=== PATIENT | male | born 1970 | race Caucasian/White ===

== ENCOUNTER 2021-05-18 13:19 | Outpatient (CLI) | payer MEDICAID, SELFPAY | END 2021-05-18 13:20 | disposition home or self-care (01) | LOC: WOUND 13:21 | PROVIDERS: Family Provider Nurse Practitioner Family; PCP Nurse Practitioner Family; Visit Provider Emergency Medicine | DX: I96 Gangrene, not elsewhere classified (principal); E11.622 Type 2 diabetes mellitus with other skin ulcer; L98.492 Non-pressure chronic ulcer of skin of other sites with fat layer exposed; F17.210 Nicotine dependence, cigarettes, uncomplicated | CPT/HCPCS: 11043; 11046; 99214 ==

== ENCOUNTER 2021-06-01 13:20 | Outpatient (CLI) | payer MEDICAID, SELFPAY | END 2021-06-01 13:21 | disposition home or self-care (01) | LOC: WOUND 13:21 | PROVIDERS: Family Provider Nurse Practitioner Family; PCP Nurse Practitioner Family; Visit Provider Nurse Practitioner Family | DX: I96 Gangrene, not elsewhere classified (principal); E11.622 Type 2 diabetes mellitus with other skin ulcer; L98.492 Non-pressure chronic ulcer of skin of other sites with fat layer exposed; F17.210 Nicotine dependence, cigarettes, uncomplicated; I10 Essential (primary) hypertension | CPT/HCPCS: 11042; 11045; A6237 ==

== ENCOUNTER 2021-06-03 15:25 | Outpatient (CLI) | payer MEDICAID, SELFPAY | END 2021-06-03 15:26 | disposition home or self-care (01) | LOC: WOUND 15:27 | PROVIDERS: Family Provider Nurse Practitioner Family; PCP Nurse Practitioner Family; Visit Provider Nurse Practitioner Family | DX: E11.622 Type 2 diabetes mellitus with other skin ulcer (principal); L98.499 Non-pressure chronic ulcer of skin of other sites with unspecified severity; M72.6 Necrotizing fasciitis | CPT/HCPCS: 97606; A6237 ==

== ENCOUNTER 2021-06-09 13:29 | Outpatient (CLI) | payer MEDICAID, SELFPAY | END 2021-06-09 13:30 | disposition home or self-care (01) | LOC: WOUND 13:30 | PROVIDERS: Family Provider Nurse Practitioner Family; PCP Nurse Practitioner Family; Visit Provider Nurse Practitioner Family | DX: E11.622 Type 2 diabetes mellitus with other skin ulcer (principal); L98.493 Non-pressure chronic ulcer of skin of other sites with necrosis of muscle; F17.210 Nicotine dependence, cigarettes, uncomplicated | CPT/HCPCS: 11042; 11045; A6237; A6250 ==

== ENCOUNTER 2021-06-14 08:03 | Outpatient (CLI) | payer MEDICAID, SELFPAY | END 2021-06-14 08:04 | disposition home or self-care (01) | LOC: WOUND 08:06 | PROVIDERS: Family Provider Nurse Practitioner Family; PCP Nurse Practitioner Family; Visit Provider Thoracic Surgery (Cardiothoracic Vascular Surgery) | DX: I96 Gangrene, not elsewhere classified (principal); E11.622 Type 2 diabetes mellitus with other skin ulcer; L98.492 Non-pressure chronic ulcer of skin of other sites with fat layer exposed; F17.210 Nicotine dependence, cigarettes, uncomplicated | CPT/HCPCS: 11042; 11045; 97597; A6250 ==

== ENCOUNTER 2021-06-21 13:49 | Outpatient (CLI) | payer MEDICAID, SELFPAY | END 2021-06-21 13:50 | disposition home or self-care (01) | LOC: WOUND 13:50 | PROVIDERS: Family Provider Nurse Practitioner Family; PCP Nurse Practitioner Family; Visit Provider Thoracic Surgery (Cardiothoracic Vascular Surgery) | DX: I96 Gangrene, not elsewhere classified (principal); E11.622 Type 2 diabetes mellitus with other skin ulcer; L98.491 Non-pressure chronic ulcer of skin of other sites limited to breakdown of skin; F17.210 Nicotine dependence, cigarettes, uncomplicated; I10 Essential (primary) hypertension | CPT/HCPCS: 97597; 97598; 97606; A6237; A6250 ==

== ENCOUNTER 2021-06-28 15:00 | Outpatient (CLI) | payer MEDICAID, SELFPAY | END 2021-06-28 15:01 | disposition home or self-care (01) | LOC: WOUND 15:02 | PROVIDERS: Family Provider Nurse Practitioner Family; PCP Nurse Practitioner Family; Visit Provider Nurse Practitioner Family | DX: I96 Gangrene, not elsewhere classified (principal); E11.622 Type 2 diabetes mellitus with other skin ulcer; L98.492 Non-pressure chronic ulcer of skin of other sites with fat layer exposed; F17.210 Nicotine dependence, cigarettes, uncomplicated | CPT/HCPCS: 11042; 11045; A6237; A6250 ==

== ENCOUNTER 2021-07-05 13:54 | Outpatient (CLI) | payer MEDICAID, SELFPAY | END 2021-07-05 13:55 | disposition home or self-care (01) | LOC: WOUND 13:55 | PROVIDERS: Family Provider Nurse Practitioner Family; PCP Nurse Practitioner Family; Visit Provider Thoracic Surgery (Cardiothoracic Vascular Surgery) | DX: I96 Gangrene, not elsewhere classified (principal); E11.622 Type 2 diabetes mellitus with other skin ulcer; L98.491 Non-pressure chronic ulcer of skin of other sites limited to breakdown of skin; F17.210 Nicotine dependence, cigarettes, uncomplicated; I10 Essential (primary) hypertension | CPT/HCPCS: 97597; 97598; 97605; A6237; A6250 ==

== ENCOUNTER 2021-07-12 14:48 | Outpatient (CLI) | payer MEDICAID, SELFPAY | END 2021-07-12 14:49 | disposition home or self-care (01) | LOC: WOUND 14:50 | PROVIDERS: Family Provider Nurse Practitioner Family; PCP Nurse Practitioner Family; Visit Provider Nurse Practitioner Family | DX: I96 Gangrene, not elsewhere classified (principal); E11.622 Type 2 diabetes mellitus with other skin ulcer; L98.492 Non-pressure chronic ulcer of skin of other sites with fat layer exposed; F17.210 Nicotine dependence, cigarettes, uncomplicated; I10 Essential (primary) hypertension | CPT/HCPCS: 11043; 11046; 97606; A6237; A6250 ==

== ENCOUNTER 2021-07-19 13:43 | Outpatient (CLI) | payer MEDICAID, SELFPAY | END 2021-07-19 13:44 | disposition home or self-care (01) | LOC: WOUND 13:43 | PROVIDERS: Family Provider Nurse Practitioner Family; PCP Nurse Practitioner Family; Visit Provider Thoracic Surgery (Cardiothoracic Vascular Surgery) | DX: I96 Gangrene, not elsewhere classified (principal); E11.622 Type 2 diabetes mellitus with other skin ulcer; L98.492 Non-pressure chronic ulcer of skin of other sites with fat layer exposed; F17.210 Nicotine dependence, cigarettes, uncomplicated | CPT/HCPCS: 11042; 11045; 97606; A6237; A6250 ==

== ENCOUNTER 2021-08-02 15:17 | Outpatient (CLI) | payer MEDICAID, SELFPAY | END 2021-08-02 15:18 | disposition home or self-care (01) | LOC: WOUND 15:18 | PROVIDERS: Family Provider Nurse Practitioner Family; PCP Nurse Practitioner Family; Visit Provider Thoracic Surgery (Cardiothoracic Vascular Surgery) | DX: I96 Gangrene, not elsewhere classified (principal); E11.622 Type 2 diabetes mellitus with other skin ulcer; L98.491 Non-pressure chronic ulcer of skin of other sites limited to breakdown of skin; F17.210 Nicotine dependence, cigarettes, uncomplicated | CPT/HCPCS: 97597; 97605; A6237; A6250 ==

== ENCOUNTER 2021-08-09 14:49 | Outpatient (CLI) | payer MEDICAID, SELFPAY | END 2021-08-09 14:50 | disposition home or self-care (01) | LOC: WOUND 14:50 | PROVIDERS: Family Provider Nurse Practitioner Family; PCP Nurse Practitioner Family; Visit Provider Thoracic Surgery (Cardiothoracic Vascular Surgery) | DX: I96 Gangrene, not elsewhere classified (principal); E11.622 Type 2 diabetes mellitus with other skin ulcer; L97.812 Non-pressure chronic ulcer of other part of right lower leg with fat layer exposed; F17.210 Nicotine dependence, cigarettes, uncomplicated | CPT/HCPCS: 97597; A6237; A6250 ==

== ENCOUNTER 2021-08-16 14:54 | Outpatient (CLI) | payer MEDICAID, SELFPAY | END 2021-08-16 14:55 | disposition home or self-care (01) | LOC: WOUND 14:56 | PROVIDERS: Family Provider Nurse Practitioner Family; PCP Nurse Practitioner Family; Visit Provider Thoracic Surgery (Cardiothoracic Vascular Surgery) | DX: E11.622 Type 2 diabetes mellitus with other skin ulcer (principal); L98.492 Non-pressure chronic ulcer of skin of other sites with fat layer exposed; I96 Gangrene, not elsewhere classified | CPT/HCPCS: 97597 ==

== ENCOUNTER 2021-08-30 13:34 | Outpatient (CLI) | payer MEDICAID, SELFPAY | END 2021-08-30 13:35 | disposition home or self-care (01) | LOC: WOUND 13:37 | PROVIDERS: Family Provider Nurse Practitioner Family; PCP Nurse Practitioner Family; Visit Provider Thoracic Surgery (Cardiothoracic Vascular Surgery) | DX: E11.622 Type 2 diabetes mellitus with other skin ulcer (principal); L98.492 Non-pressure chronic ulcer of skin of other sites with fat layer exposed; F17.210 Nicotine dependence, cigarettes, uncomplicated | CPT/HCPCS: 97597 ==

== ENCOUNTER → 2021-09-13 12:59 | Outpatient (BNVA) | payer MEDICAID, SELFPAY | PROVIDERS: Family Provider Nurse Practitioner Family; PCP Nurse Practitioner Family; Visit Provider Thoracic Surgery (Cardiothoracic Vascular Surgery) | DX: E11.622 Type 2 diabetes mellitus with other skin ulcer (principal); I96 Gangrene, not elsewhere classified; L98.492 Non-pressure chronic ulcer of skin of other sites with fat layer exposed; F17.210 Nicotine dependence, cigarettes, uncomplicated | CPT/HCPCS: 97597 ==

== ENCOUNTER → 2021-09-27 13:02 | Outpatient (BNVA) | payer MEDICAID, SELFPAY | PROVIDERS: Family Provider Nurse Practitioner Family; PCP Nurse Practitioner Family; Visit Provider Thoracic Surgery (Cardiothoracic Vascular Surgery) | DX: E11.622 Type 2 diabetes mellitus with other skin ulcer (principal); L98.492 Non-pressure chronic ulcer of skin of other sites with fat layer exposed; F17.210 Nicotine dependence, cigarettes, uncomplicated | CPT/HCPCS: 99212 ==

== ENCOUNTER 2021-10-27 10:46 | Outpatient (CLI) | payer MEDICAID, SELFPAY ==
--- NOTE | 2021-10-27 10:58 | USCV_ITS ---
Eligio Knox Age: 51 Gender: M : 1970 Exam Date: 10/27/2021 11:12 Ordering Phys: Stephany Montoya Technologist: KEYONNA Exam Location: [facility] Indication: Pulmonary vascular congestion BP: 140 / 67 HR: 54 Rhythm: Sinus Technical Quality: Very technically difficult study MEASUREMENTS (Male / Female) Normal Values 2D ECHO LV Diastolic Diameter PLAX 5.5 cm 4.2 - 5.9 / 3.9 - 5.3 cm LV Systolic Diameter PLAX 3.9 cm IVS Diastolic Thickness 1.2 cm 0.6 - 1.0 / 0.6 - 0.9 cm IVS Systolic Thickness 2.5 cm LVPW Diastolic Thickness 1.9 cm 0.6 - 1.0 / 0.6 - 0.9 cm LVPW Systolic Thickness 2.1 cm LVOT Diameter 2.0 cm LV Ejection Fraction 2D Teich 53.4 % LA Diameter 3.5 cm Aorta at Sinotubular Diameter 1.8 cm M-MODE Aortic Annulus Diameter 3.7 cm LA Ao Ratio MM 0.9 MV E Point Septal Separation 0.2 cm DOPPLER AV Peak Velocity 137.0 cm/s LVOT Peak Velocity 90.0 cm/s AV Area Cont Eq vti 2.5 cm squared AV Area Cont Eq pk 2.1 cm squared MV Area PHT 3.5 cm squared Mitral E to A Ratio 1.0 MV E' Velocity 42.5 cm/s Mitral E to MV E' Ratio 13.4 Mitral E to LV E' Lateral Ratio 10.8 Mitral E to LV E' Septal Ratio 17.7 TR Peak Velocity 205.3 cm/s TR Peak Gradient 16.9 mmHg TV Peak E Velocity 36.0 cm/s PV Peak Velocity 135.0 cm/s RV Acceleration Time 0.1 s RV Ejection Time 0.3 s RV AcT/ET 0.3 FINDINGS Left Ventricle Normal left ventricular size. LV systolic function is normal with EF of 50-55%. No regional wall motion abnormalities. Grade 2 diastolic dysfunction Right Ventricle Grossly normal Right Atrium Not well visualized Left Atrium Not well visualized Mitral Valve Grossly normal without significant stenosis or prolapse. There is no mitral regurgitation. Aortic Valve Not visualized. No significant stenosis. There is no aortic regurgitation. Tricuspid Valve Not visualized. Trace tricuspid regurgitation. Pulmonary artery systolic pressure is normal. Pulmonic Valve Not visualized Pericardium Normal pericardium without effusion. Aorta Normal ascending aorta dimension. IVC CONCLUSIONS Technically limited echocardiogram because of poor ultranosic windows LV systolic function is normal with EF of 50-55% Grade 2 diastolic dysfunction Valves are not well visualized. Trace tricuspid regurgitation No comparison studies are available Narendra Olson MD (Electronically Signed) Final Date: 06 Nov 2021 22:24 S
== END 2021-10-27 10:47 | disposition home or self-care (01) ==
PROVIDERS: PCP Nurse Practitioner Family; Visit Provider Nurse Practitioner Family
DX: R09.89 Other specified symptoms and signs involving the circulatory and respiratory systems (principal)
CPT/HCPCS: 93306

== ENCOUNTER 2022-01-13 15:50 | Emergency (ER) | payer MEDICAID, SELFPAY ==
[2022-01-13] VITALS (8 sets, daily range): BP systolic 135–234; BP diastolic 81–135; PULSE 56–60; RESP 19–20; TEMP 36.8; O2SAT 90–96; BMI 40.3
--- NOTE | 2022-01-13 15:51 | ECG_ITS ---
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 Measurements Intervals [place] Rate: 54 P: -64 WI: 135 QRS: 21 QRSD: 93 T: 50 QT: 456 QTc: 435 Interpretive Statements JUNCTIONAL BRADYCARDIA ABNORMAL RHYTHM ECG Compared to ECG 12/16/2014 13:13:51 Sinus rhythm no longer present Ventricular premature complex(es) no longer present Electronically Signed On 01-14-2022 12:22:58 CDT by Neida Godfrey M.D. [id number]
--- NOTE | 2022-01-13 16:23 | ED_ITS ---
HPI - SOB/Dyspnea General: Chief Complaint: Shortness of Breath/Dyspnea Stated Complaint: LOW HEARTRATE Time Seen by Provider: 01/13/22 15:51 Source: patient Mode of arrival: ambulatory History of Present Illness: HPI Narrative: 51 yo male presents with conmplaints of fluid in his abd. His bursa when he had surgery in his right groin they cut open a fluid pocket and now it is drained in his abdomen into his back and is making it difficult for him to breathe. He denies any fever sweats chills he noticed that when he bends over he gets extremely short of breath. Patient is morbidly obese is a history of diabetes mellitus. He is not currently take anything for his diabetes mellitus he is determined that it is in remission. He does have fluid draining which he perceives to be draining from his abdomen its coming from the right groin area. There is and chest. He does complain of shortness of breath with activity. But no chest pain. MD elicited complaint: shortness of breath and cough Pertinent past history: diabetes Onset (ago): week(s) Severity: moderate Exacerbating factors: lying flat, exertion, movement and coughing Relieving factors: rest Known history of: diabetes Associated symptoms: Reports chest congestion, chest pain, orthopnea and rash; Deny abdominal pain, cough, diaphoresis, dizziness, extremity pain, fever(s), hemoptysis, lightheadedness, myalgias, nausea, palpitations, paresthesias, polydipsia, polyuria, sense of impending doom, syncope or vomiting Treatment prior to arrival: none Review of Systems Const: Denies: fever(s), chills, fatigue, malaise or diaphoresis Card: Reports: chest pain and orthopnea; Denies: palpitations, lightheadedness or syncope Resp: Reports: chest congestion; Denies: dyspnea, productive cough, non-productive cough or hemoptysis GI: Denies: abdominal pain, nausea or vomiting Musc: Denies: extremity pain Neuro: Denies: dizziness Endo: Denies: polyuria or polydipsia PFS ED PFSH: Medical History Diabetes Diastolic dysfunction Edema Hyperlipidemia Hypertension Pulmonary vascular congestion Family History Father Stroke Brother CAD (coronary artery disease) Dementia Stroke Family/Other Cancer Diabetes Denies family history of Clotting disorder Chronic kidney disease (CKD) Suicide Anesthesia complication Bleeding disorder Lung disease Social History Smoking and tobacco status: current every day smoker Physical Exam Const: GENERAL APPEARANCE: cooperative and comfortable ORIENTATION/CONSCIOUSNESS: Yes awake, Yes oriented to person, Yes oriented to place and Yes oriented to time HENMT: COMMON NORMALS: normocephalic, atraumatic, hearing grossly normal b ilaterally, external ears normal, EAC's normal, TM's normal bilaterally and Normal nasal mucous membranes and turbinates present HEAD & SCALP: normocephalic and atraumatic NOSE: Normal nasal mucous membranes and turbinates present EXTERNAL EAR: Yes external ears normal EXTERNAL AUDITORY CANAL: EAC's normal TYMPANIC MEMBRANE: TM's normal bilaterally Eye: COMMON NORMALS: Equal, round and reactive pupils present, EOMs intact bilaterally, conjunctivae normal and no scleral icterus CONJUNCTIVA: Yes conjunctivae normal PUPIL: Yes Equal, round and reactive pupils present Neck/C-Spine: COMMON NORMALS: full ROM, no lymphadenopathy and supple Lymph: LYMPHATIC: no lymphadenopathy noted and no lymphedema noted Resp: COMMON NORMALS: normal respiratory effort, No retractions, No use of accessory muscles and clear to auscultation bilaterally AUSCULTATION: clear to auscultation bilaterally Cardio: COMMON NORMALS: regular rate, regular rhythm and No murmurs present (Cardio) RATE: regular rate RHYTHM: regular rhythm GI: COMMON NORMALS: Soft to palpation and No hepatosplenomegaly present AUSCULTATION: Yes normoactive bowel sounds PALPATION: Yes Soft to palpation, No Tenderness to palpation present (GI), No Guarding due to palpation present (GI) and Yes No hepatosplenomegaly present Extremity: COMMON NORMALS: normal to inspection, capillary refill normal and no calf tenderness GENERAL: Yes edema (2+ edema lower extremities extending to the groin) OTHER: Examination lower extremities +2 edema nonpitting in the lower extremities to the level of the waist. Patient has breakdown of the skin under the pannus particularly on the right side with some serous drainage no identifiable abscess on palpation. Neuro: SENSORIUM/ORIENTATION: Yes oriented to person, Yes oriented to place and Yes oriented to time Skin: NARRATIVE SKIN EXAM: Chronic skin changes in the groin and inferior portion of the pannus. There is some small areas of superficial breakdown with serous drainage no purulent drainage the area is chronically indurated and boggy there is no palpable fluctuations I cannot express any purulent fluid. Course Vital Signs: Vital signs: Vital Signs Temperature 98.2 F 01/13/22 15:52 Pulse Rate 56 L 01/13/22 18:30 Respiratory Rate 19 H 01/13/22 15:52 Blood Pressure 145/90 01/13/22 18:30 Pulse Oximetry 96 01/13/22 19:09 Oxygen Delivery Me thod 01/13/22 18:30 MDM - SOB/Dyspnea Medical Decision Making Patient has a lot of chronic skin changes in the groin and inferior aspect of the pannus. He also has a lot of fluid overload. I think his difficulty breathing comes just because of his size when he bends over he basically reduces lung capacity is very short of breath. He would benefit from some diuresis given Lasix here and discharged home with Lasix. He is not however at this point require inpatient care. Resting oxygen is 96% and he does not decrease with ambulation. I Kateryna cover him with some antibiotics and will have him follow-up with his primary care doctor within the week. We will schedule for an outpatient echo and follow-up with cardiology as well. Also suspect patient has sleep apnea. He should be evaluated for that at some point 2. Medical Records I reviewed the patient's medical records. Lab Data I reviewed the patient's lab results. : 01/13/22 16:30 01/13/22 16:30 Labs/Radiology: Radiology Impressions Abdomen Ultrasound 01/13/22 16:45 IMPRESSION: No ascites is identified. Chest X-Ray 01/13/22 16:46 IMPRESSION: No acute infiltrate. Laboratory Results WBC 11.1 10^3/uL (4.0-10.0) H 01/13/22 16:30 RBC 5.55 10^6/uL (4.1-5.3) H 01/13/22 16:30 Hgb 17.7 g/dL (11.7-16.6) H 01/13/22 16:30 Hct 53.2 % (42.0-52.0) H 01/13/22 16:30 MCV 95.9 fl (80-94) H 01/13/22 16:30 MCH 31.9 pg (28.0-34.0) 01/13/22 16:30 MCHC 33.3 g/dL (30.0-36.0) 01/13/22 16:30 RDW 13.1 % (12.1-15.1) 01/13/22 16:30 Plt Count 234 10^3/cmm (130-400) 01/13/22 16:30 MPV 10.5 fL (7.4-10.4) H 01/13/22 16:30 Neut % (Auto) 75.4 % 01/13/22 16:30 Lymph % (Auto) 14.4 % 01/13/22 16:30 Giles % (Auto) 7.1 % 01/13/22 16:30 Eos % (Auto) 1.7 % 01/13/22 16:30 Baso % (Auto) 1.0 % 01/13/22 16:30 Neut # (Auto) 8.35 10^3/uL (1.8-7.7) H 01/13/22 16:30 Lymph # (Auto) 1.6 10^3/uL (0.8-4.8) 01/13/22 16:30 Giles # (Auto) 0.8 10^3/uL (0.2-0.9) 01/13/22 16:30 Eos # (Auto) 0.2 10^3/uL (0.0-0.8) 01/13/22 16:30 Baso # (Auto) 0.1 10^3/uL (0.0-0.1) 01/13/22 16:30 Nucleated RBC % (auto) 0 % 01/13/22 16:30 Nucleated RBCs # 0.0 /100WBC 01/13/22 16:30 Sodium 133 mmol/L (136-145) L 01/13/22 16:30 Potassium 4.5 mmol/L (3.5-5.1) 01/13/22 16:30 Chloride 95 mmol/L (98-107) L 01/13/22 16:30 Carbon Dioxide 29 mmol/L (22-29) 01/13/22 16:30 Anion Gap 13.5 (5-19) 01/13/22 16:30 BUN 12 mg/dL (6-20) 01/13/22 16:30 Creatinine 0.8 mg/dL (0.7-1.2) 01/13/22 16:30 GFR Calculation 101.1 mL/min (90-130) 01/13/22 16:30 Glucose 92 mg/dL (65-115) 01/13/22 16:30 POC Glucose 95 mg/dL (70-110) 01/13/22 17:20 Calculated Osmolality 275 mOsm/kg (285-295) L 01/13/22 16:30 Calcium 9.2 mg/dL (8.5-10.5) 01/13/22 16:30 Magnesium 1.7 mg/dL (1.7-2.3) 01/13/22 16:30 Total Bilirubin 0.5 mg/dL (0.15-1.2) 01/13/22 16:30 AST 23 U/L (0-40) 01/13/22 16:30 ALT 19 U/L (0-41) 01/13/22 16:30 Alkaline Phosphatase 117 IU/L (40-130) 01/13/22 16:30 Troponin T Baseline 14 ng/L (0-15) 01/13/22 17:05 NT-Pro-B Natriuret Pep 245 pg/mL (0-125) H 01/13/22 17:05 Total Protein 7.8 g/dL (6.6-8.7) 01/13/22 16:30 Albumin 3.6 g/dL (3.5-5.2) 01/13/22 16:30 Globulin 4.2 g/dL (1.3-4.6) 01/13/22 16:30 Discharge Plan Discharge Patient Disposition: Home Clinical Impression: Congestive heart failure, Hypertension, Diabetes Condition: Stable Prescriptions: New levofloxacin 750 mg tablet 750 mg PO DAILY 7 Days Qty: 7 0RF Lasix 20 mg tablet 20 mg PO DAILY Qty: 30 0RF No Action nystatin [Nystop] 100,000 unit/gram powder 1 applic topical BID lisinopril 20 mg tablet 20 mg PO DAILY amlodipine 10 mg tablet 10 mg PO DAILY atenolol 50 mg tablet 50 mg PO BID simvastatin 20 mg tablet 20 mg PO DAILY triamcinolone acetonide 0.1 % cream 1 applic topical DAILY Discharge Orders: Discharge ED (Routine); Ordered 01/13/22 Ordered By: Darell Townsend Referrals: Milind Kohler [Primary Care Provider] - Discharge Diet: Cardiac Discharge Activity: Limit activity as instructed Patient Instructions: Opioid Safety Activity Restrictions/Additional Instructions: Start antibiotics and Lasix daily. Follow-up with your primary care doctor within the week. Case management will make arrangements for you to have an echocardiogram. Coding Level of Care Code ED Account Manager Relief for Chg Fwd Exam Detailed
--- NOTE | 2022-01-13 16:45 | USR_ITS ---
PROCEDURE INFORMATION: Exam: US Abdomen; Limited Exam date and time: 01/13/2022 5:20 PM Age: 51 years old Clinical indication: Other: Difficulty breathing; Additional info: Eval for ascites TECHNIQUE: Imaging protocol: Real time ultrasound of the abdomen with image documentation. Limited exam focused on the region of clinical interest. COMPARISON: No relevant prior studies available. FINDINGS: No ascites it is identified on this examination. All 4 quadrants were scanned. US/US abdomen lmt fluid [id number] IMPRESSION: No ascites is identified.
--- NOTE | 2022-01-13 16:46 | XRR_ITS ---
PROCEDURE INFORMATION: Exam: XR Chest Exam date and time: 01/13/2022 4:53 PM Age: 51 years old Clinical indication: Cough; Additional info: Dyspnea/cough TECHNIQUE: Imaging protocol: Radiologic exam of the chest. Views: 1 view. COMPARISON: No relevant prior studies available. FINDINGS: Limitations: Study is made with lordotic positioning. Lungs: Visualized portions of the lungs are clear. There is a small calcified granuloma right upper lobe. Pleural spaces: Unremarkable. No pleural effusion. No pneumothorax. Heart/Mediastinum: Heart is within normal limits of size. Bones/joints: Unremarkable. XR/XR chest 1V portable [id number] IMPRESSION: No acute infiltrate.
[2022-01-13 16:57] LABS: Basophils # 0.1 10^3/uL (0.0-0.1); Eosinophils # 0.2 10^3/uL (0.0-0.8); Eosinophils % 1.7 %; Hematocrit 53.2 % (42.0-52.0); Hemoglobin 17.7 g/dL (11.7-16.6); Lymphocytes # 1.6 10^3/uL (0.8-4.8); Lymphocytes % 14.4 %; Mean Corpuscular HGB Conc 33.3 g/dL (30.0-36.0); Mean Corpuscular Hemoglobin 31.9 pg (28.0-34.0); Mean Corpuscular Volume 95.9 fl (80-94); Mean Platelet Volume 10.5 fL (7.4-10.4); Monocytes # 0.8 10^3/uL (0.2-0.9); Monocytes % 7.1 %; Neutrophils # 8.35 10^3/uL (1.8-7.7); Neutrophils % 75.4 %; Nucleated Red Blood Cells % 0 %; Platelet Count 234 10^3/cmm (130-400); Red Blood Count 5.55 10^6/uL (4.1-5.3); Red Cell Distribution Width 13.1 % (12.1-15.1); White Blood Count 11.1 10^3/uL (4.0-10.0)
[2022-01-13 17:16] LABS: Alanine Aminotransferase 19 U/L (0-41); Albumin Level 3.6 g/dL (3.5-5.2); Alkaline Phosphatase 117 IU/L (40-130); Anion Gap 13.5 (5-19); Aspartate Amino Transferase 23 U/L (0-40); Blood Urea Nitrogen 12 mg/dL (6-20); Calcium 9.2 mg/dL (8.5-10.5); Carbon Dioxide 29 mmol/L (22-29); Chloride 95 mmol/L (98-107); Globulin 4.2 g/dL (1.3-4.6); Glomerular Filtration Rate 101.1 mL/min (90-130); Glucose 92 mg/dL (65-115); Magnesium 1.7 mg/dL (1.7-2.3); Osmolality Calculated 275 mOsm/kg (285-295); Potassium 4.5 mmol/L (3.5-5.1); Sodium 133 mmol/L (136-145); Total Bilirubin 0.5 mg/dL (0.15-1.2); Total Protein 7.8 g/dL (6.6-8.7)
[2022-01-13 17:24] LABS: Glucose Point of Care 95 mg/dL (70-110)
[2022-01-13] MEDS: FUROsemide 10 mg/mL SDV 4mL 40 MG IVP (17:49)
[2022-01-13 18:01] LABS: Troponin(5th) Baseline 14 ng/L (0-15)
[2022-01-13 18:10] LABS: NT Pro B Type Natriuretic Pept 245 pg/mL (0-125)
--- NOTE | 2022-01-13 19:03 | ECG_ITS ---
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 Measurements Intervals [place] Rate: 62 P: -83 [place]: 125 QRS: 24 QRSD: 97 T: 49 QT: 484 QTc: 494 Interpretive Statements JUNCTIONAL RHYTHM PROLONGED QT INTERVAL Compared to ECG 01/13/2022 17:15:53 Junctional rhythm now present Prolonged QT interval now present Electronically Signed On 01-14-2022 12:52:58 CDT by Neida Godfrey M.D. [email or web address]/store/[id number]
[2022-01-13 19:38] LABS: Troponin 5 2HR 15.14 ng/L (0-15)
[2022-01-13 19:39] LABS: Troponin 5 2HR Delta 1.14 ABS# (0-10)
--- NOTE | 2022-01-14 16:29 | DCPLANNER ---
Addendum entered by Kaleigh Borrero 06/21/22 12:59: Patient had an appointment scheduled for an echo - patient did not attend appointment Addendum entered by Kaleigh Borrero 01/20/22 15:32: Patient had a follow up appointment scheduled with Kelly Steward at [facility] - patient did attend appointment. Original Note: assistant produce manager had message to schedule a follow up appointment for patient with cardiology. assistant produce manager sent patients information to the front office staff at [facility]. Patients information will be printed and reviewed. Clinic will call patient with appointment information. assistant produce manager had message to schedule an outpatient echo cardiogram for patient. assistant produce manager faxed signed order to centralized scheduling who will call patient with appointment information.
== END 2022-01-13 19:56 | disposition home or self-care (01) ==
PROVIDERS: Emergency Provider Family Medicine; PCP Family Medicine
DX: I11.0 Hypertensive heart disease with heart failure (principal); I50.9 Heart failure, unspecified; E11.9 Type 2 diabetes mellitus without complications; E78.5 Hyperlipidemia, unspecified; F17.210 Nicotine dependence, cigarettes, uncomplicated
CPT/HCPCS: 36415; 36416; 71045; 76705; 80053; 82962; 83735; 83880; 84484; 85025; 87040; 93005; 96374; 99204; 99285; J1940

== ENCOUNTER 2023-03-07 08:22 | Inpatient (IN) | payer MEDICARE, MEDICAID, SELFPAY ==
[2023-03-07] VITALS (92 sets, daily range): BP systolic 120–221; BP diastolic 57–136; PULSE 46–72; RESP 17–30; TEMP 35.5–36.5; O2SAT 86–100; BMI 45.0
--- NOTE | 2023-03-07 08:32 | XRR_ITS ---
PROCEDURE INFORMATION: Exam: XR Chest Exam date and time: 03/07/2023 9:29 AM Age: 52 years old Clinical indication: Pain; Angina pectoris; Additional info: Chest pain TECHNIQUE: Imaging protocol: Radiologic exam of the chest. Views: 1 view. COMPARISON: CR XR chest 1V portable [id number] 01/13/2022 4:53 PM FINDINGS: Lungs: Unremarkable. No consolidation. Pleural spaces: Unremarkable. No pleural effusion. No pneumothorax. Heart/Mediastinum: The heart size is not well assessed. Bones/joints: Unremarkable. XR/XR chest 1V portable [id number] IMPRESSION: No evidence of acute pulmonary process.
--- NOTE | 2023-03-07 08:32 | ECG_ITS ---
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 Measurements Intervals [place] Rate: 53 P: -29 [place]: 137 QRS: 66 QRSD: 97 T: 65 QT: 472 QTc: 446 Interpretive Statements SINUS BRADYCARDIA WITH SINUS ARRHYTHMIA Compared to ECG 01/13/2022 19:03:07 Early repolarization changes Junctional rhythm no longer present Prolonged QT interval no longer present Electronically Signed On 03-07-2023 21:11:02 CDT by Michelle Leija M.D. [id number]
--- NOTE | 2023-03-07 08:53 | ED_ITS ---
HPI - Chest Pain General: Chief Complaint: Chest Pain Stated Complaint: Chest Pain/ SOB Time Seen by Provider: 03/07/23 08:32 Source: patient Mode of arrival: ambulatory History of Present Illness: 52-year-old male presents emergency room complaining of chest pain and shortness of breath. He has increased orthopnea. Chest pain is going on for 12 hours substernal radiating into the shoulders. He is also noticed significant amount of increased swelling in his lower extremities. Patient loss of urinary continence in the emergency room is also complaining of dysuria urgency and frequency. He has severe psoriatic psoriasis with inflamed lesions especially on his buttocks and pelvic region and in the pannus. Lethargic on arrival MD complaint: chest pain Pertinent past history: coronary artery disease and prior ME Onset (ago): hour(s) (12) Timing of current episode: episodic Onset: during rest Pain radiation: none Relieving factors: nothing Exacerbating factors: nothing Associated symptoms: Deny abdominal pain, diaphoresis, dyspnea, fever(s), leg edema, nausea, palpitations, sense of impending doom, syncope or vomiting Review of Systems Const: Reports: fatigue and malaise; Denies: fever(s), chills or diaphoresis Card: Reports: chest pain, dyspnea on exertion and orthopnea; Denies: palpitations or syncope Resp: Denies: dyspnea GI: Denies: abdominal pain, nausea or vomiting : Reports: dysuria, urinary frequency and urinary urgency Skin/Breast: Reports: rash, erythema, skin tenderness and skin swelling PFS ED PFSH: Medical History (Updated 03/07/23 @ 11:44 by Darell Townsend DO) Alcohol abuse Diabetes Diastolic dysfunction Edema Hyperlipidemia Hypertension Hyponatremia Psoriasis Pulmonary vascular congestion Tobacco dependency Surgical History (Updated 03/07/23 @ 10:11 by Wyatt Plummer MD) Hx of appendectomy Hx of umbilical hernia repair S/P excisional debridement Family History Father Stroke Brother CAD (coronary artery disease) Dementia Stroke Family/Other Cancer Diabetes Denies family history of Clotting disorder Chronic kidney disease (CKD) Suicide Anesthesia complication Bleeding disorder Lung disease Social History (Updated 03/07/23 @ 10:11 by Wyatt Plummer MD) Smoking and tobacco status: current every day smoker Alcohol intake: current Physical Exam Const: ORIENTATION/CONSCIOUSNESS: Yes awake HENMT: COMMON NORMALS: normocephalic, atraumatic and hearing grossly normal bilaterally HEAD & SCALP: normocephalic and atraumatic Resp: COMMON NORMALS: No retractions and No use of accessory muscles Cardio: COMMON NORMALS: regular rhythm and No murmurs present (Cardio) RHYTHM: regular rhythm GI: COMMON NORMALS: Soft to palpation and No hepatosplenomegaly present AUSCULTATION: Yes normoactive bowel sounds PALPATION: Yes Soft to palpation, No Tenderness to palpation present (GI), No Guarding due to palpation present (GI) and Yes No hepatosplenomegaly present Extremity: COMMON NORMALS: capillary refill normal and no calf tenderness Course Vital Signs: Vital signs: Vital Signs Temperature 97.7 F 03/07/23 08:46 Pulse Rate 62 03/07/23 11:30 Respiratory Rate 19 H 03/07/23 11:28 Blood Pressure 183/86 03/07/23 11:30 Pulse Oximetry 99 03/07/23 11:28 Oxygen Delivery Me thod BiPAP 03/07/23 10:23 Oxygen Flow Rate 5 03/07/23 08:46 Fraction of Inspir ed Oxygen 40 03/07/23 10:21 MDM - Chest Pain Medical Decision Making Chest pain improved with nitro. Reviewed films with Dr. Ivey he came down reviewed the EKGs as well. No definitive ST segment elevation but some changes slightly suggestive of it without reciprocal changes we have titrated his nitro up and his pain has improved. We have given him heparin and Plavix will admit for rule out ME and further evaluation discussed with hospitalist orders written Dr. Leija consult Medical Records I reviewed the patient's medical records. Lab Data I reviewed the patient's lab results. 03/07/23 08:39 03/07/23 08:39 Radiology Impressions Chest X-Ray 03/07/23 08:32 IMPRESSION: No evidence of acute pulmonary process. Laboratory Results WBC 12.04 10^3/uL (3.29-11.43) H 03/07/23 08:39 RBC 5.23 10^6/uL (3.85-5.65) 03/07/23 08:39 Hgb 17.10 g/dL (11.27-16.99) H 03/07/23 08:39 Hct 53.3 % (37-53) H 03/07/23 08:39 MCV 101.9 fl (82-101) H 03/07/23 08:39 MCH 32.7 pg (27-33) 03/07/23 08:39 MCHC 32.1 g/dL (30-55) 03/07/23 08:39 RDW 15.3 % (12.1-15.1) H 03/07/23 08:39 Plt Count 218 10^3/cmm (157-399) 03/07/23 08:39 MPV 10.2 fL (7.4-10.4) 03/07/23 08:39 Neut % (Auto) 82.5 % 03/07/23 08:39 Lymph % (Auto) 11.0 % 03/07/23 08:39 [place] % (Auto) 4.4 % 03/07/23 08:39 Eos % (Auto) 0.4 % 03/07/23 08:39 Baso % (Auto) 0.6 % 03/07/23 08:39 Neut # (Auto) 9.93 10^3/uL (1.8-7.7) H 03/07/23 08:39 Lymph # (Auto) 1.3 10^3/uL (0.8-4.8) 03/07/23 08:39 [place] # (Auto) 0.5 10^3/uL (0.2-0.9) 03/07/23 08:39 Eos # (Auto) 0.1 10^3/uL (0.0-0.8) 03/07/23 08:39 Baso # (Auto) 0.1 10^3/uL (0.0-0.1) 03/07/23 08:39 Nucleated RBC % (auto) 0.2 % 03/07/23 08:39 Nucleated RBCs # 0.0 /100WBC 03/07/23 08:39 Specimen Type Arterial 03/07/23 10:02 Sample Site Radial, left 03/07/23 10:02 ABG pH 7.27 (7.35-7.45) L 03/07/23 10:02 ABG pCO2 66.8 mmHg (35-45) H* 03/07/23 10:02 ABG pO2 84.5 mmHg (80.0-100.0) 03/07/23 10:02 ABG HCO3 30.5 mmol/L (22-26) H 03/07/23 10:02 ABG O2 Saturation 96.3 03/07/23 10:02 ABG Base Excess 1.1 mmol/L (-2.0-2.0) 03/07/23 10:02 Misha Test Pos 03/07/23 10:02 A-a O2 Gradient 15.8 mmHg (5-10) H 03/07/23 10:02 Hematocrit 52.8 % (42-52) H 03/07/23 10:02 Hgb O2 Saturation 85.3 % (95-100) L 03/07/23 10:02 Carboxyhemoglobin 11.4 %THgb (0.4-20.1) 03/07/23 10:02 Methemoglobin 0.1 % (0.4-1.5) L 03/07/23 10:02 Total Hemoglobin 17.2 g/dL (14-18) 03/07/23 10:02 Sodium 130.0 mmol/L (131-143) L 03/07/23 10:02 Potassium 4.6 mmol/L (3.5-5.0) 03/07/23 10:02 Glucose 194.0 mg/dL (70-115) H 03/07/23 10:02 Ionized Calcium 1.2 mmol/L (1.1-1.4) 03/07/23 10:02 O2 Delivery Device Bipap 03/07/23 10:02 O2 Liters/Min 5.0 % 03/07/23 08:58 FiO2 40.0 % 03/07/23 10:02 Information Security Officer ID [place] 03/07/23 10:02 Sodium 129 mmol/L (136-145) L 03/07/23 08:39 Potassium 4.6 mmol/L (3.5-5.1) 03/07/23 08:39 Chloride 89 mmol/L (98-107) L 03/07/23 08:39 Carbon Dioxide 30 mmol/L (22-29) H 03/07/23 08:39 Anion Gap 14.6 (5-19) 03/07/23 08:39 BUN 14 mg/dL (6-20) 03/07/23 08:39 Creatinine 0.8 mg/dL (0.7-1.2) 03/07/23 08:39 GFR Calculation 100.7 mL/min (90-130) 03/07/23 08:39 Glucose 207 mg/dL (65-115) H 03/07/23 08:39 Estimat Average Glucose 180 03/07/23 08:39 Hemoglobin A1c 7.9 % (4.0-6.0) H 03/07/23 08:39 Calculated Osmolality 275 mOsm/kg (285-295) L 03/07/23 08:39 Lactic Acid 1.6 mmol/L (0.5-2.2) 03/07/23 08:39 Calcium 8.7 mg/dL (8.5-10.5) 03/07/23 08:39 Total Bilirubin 0.6 mg/dL (0.15-1.2) 03/07/23 08:39 AST 15 U/L (0-40) 03/07/23 08:39 ALT 21 U/L (0-41) 03/07/23 08:39 Alkaline Phosphatase 145 U/L (40-130) H 03/07/23 08:39 Creatine Kinase 35 U/L (39-308) L 03/07/23 08:39 Troponin T Baseline 13 ng/L (0-15) 03/07/23 08:39 NT-Pro-B Natriuret Pep 655 pg/mL (0-125) H 03/07/23 08:39 Total Protein 7.5 g/dL (6.6-8.7) 03/07/23 08:39 Albumin 3.5 g/dL (3.5-5.2) 03/07/23 08:39 Globulin 4.0 g/dL (1.3-4.6) 03/07/23 08:39 Lipase 27 U/L (13-60) 03/07/23 08:39 TSH 1.18 uIU/mL (0.27-4.20) 03/07/23 08:39 Urine Color Dark yellow (Yellow) 03/07/23 09:11 Urine Appearance Cloudy (CLEAR) A 03/07/23 09:11 Urine pH 5 (5-7) 03/07/23 09:11 Ur Specific [place] 1.020 (1.005-1.030) 03/07/23 09:11 Urine Protein 3+ (Negative) H 03/07/23 09:11 Urine Glucose (UA) Trace (Normal) H 03/07/23 09:11 Urine Ketones 1+ (Negative) H 03/07/23 09:11 Urine Blood 2+ (Negative) H 03/07/23 09:11 Urine Nitrate Negative (Negative) 03/07/23 09:11 Urine Bilirubin 1+ (Negative) H 03/07/23 09:11 Urine Urobilinogen 1 mg/dL (Negative) H 03/07/23 09:11 Ur Leukocyte Esterase 2+ (Negative) H 03/07/23 09:11 Urine RBC 5-10 /hpf (0-2) H 03/07/23 09:11 Urine WBC 10-15 /hpf (0-5) H 03/07/23 09:11 Ur Squamous Epith Cells 0-4 /hpf (0-5) H 03/07/23 09:11 Amorphous Sediment Not Reportable 03/07/23 09:11 Urine Bacteria 1+ /hpf (NONE) H 03/07/23 09:11 Hyaline Casts 5-10 /lpf H 03/07/23 09:11 Urine Mucus Trace /hpf 03/07/23 09:11 Serum Ketones Negative (Negative) 03/07/23 08:39 All radiology interpretation(s) finalized by discharge Discharge Plan Discharge Patient Disposition: Admitted As Inpatient Admit Provider: Wyatt Plummer Clinical Impression: Unstable angina pectoris Condition: Stable Coding Level of Care 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
[2023-03-07 08:56] LABS: Basophils # 0.1 10^3/uL (0.0-0.1); Basophils % 0.6 %; Eosinophils # 0.1 10^3/uL (0.0-0.8); Eosinophils % 0.4 %; Hematocrit 53.3 % (37-53); Lymphocytes # 1.3 10^3/uL (0.8-4.8); Mean Corpuscular HGB Conc 32.1 g/dL (30-55); Mean Corpuscular Hemoglobin 32.7 pg (27-33); Mean Corpuscular Volume 101.9 fl (82-101); Mean Platelet Volume 10.2 fL (7.4-10.4); Monocytes # 0.5 10^3/uL (0.2-0.9); Monocytes % 4.4 %; Neutrophils # 9.93 10^3/uL (1.8-7.7); Neutrophils % 82.5 %; Nucleated Red Blood Cells % 0.2 %; Platelet Count 218 10^3/cmm (157-399); Red Blood Count 5.23 10^6/uL (3.85-5.65); Red Cell Distribution Width 15.3 % (12.1-15.1); White Blood Count 12.04 10^3/uL (3.29-11.43)
[2023-03-07 09:09] LABS: ABG PCO2 76.6 mmHg (35-45); ABG PH Result 7.22 (7.35-7.45); Arterial Blood Gas Hematocrit 52.6 % (42-52); Base Excess ABG 0.4 mmol/L (-2.0-2.0); Blood Gas Allen Test Pos; Blood Gas Operator Identificat WALCI; Blood Gas Sample Site Radial, left; Blood Gas Sample Type Arterial; HCO3 ABG 31.2 mmol/L (22-26); HGB O2 Sat 85.1 % (95-100); Ionized Calcium Level - ABG 1.2 mmol/L (1.1-1.4); Methemoglobin 0.2 % (0.4-1.5); Oxygen Device NC; Oxygen Saturation ABG 98.1; Potassium Level - ABG 4.5 mmol/L (3.5-5.0); Total Hemoglobin 17.2 g/dL (14-18)
[2023-03-07] MEDS: FUROsemide 10 mg/mL SDV 10mL 60 MG IVP ×2 (09:14→19:40)
[2023-03-07 09:23] LABS: Lactic Sepsis W/Reflex 1.6 mmol/L (0.5-2.2)
[2023-03-07 09:27] LABS: Ketone (Acetest) Serum Negative (Negative); Troponin(5th) Baseline 13 ng/L (0-15)
[2023-03-07 09:34] LABS: Alanine Aminotransferase 21 U/L (0-41); Albumin Level 3.5 g/dL (3.5-5.2); Alkaline Phosphatase 145 U/L (40-130); Anion Gap 14.6 (5-19); Aspartate Amino Transferase 15 U/L (0-40); Blood Urea Nitrogen 14 mg/dL (6-20); Calcium 8.7 mg/dL (8.5-10.5); Carbon Dioxide 30 mmol/L (22-29); Chloride 89 mmol/L (98-107); Creatine Phosphokinase 35 U/L (39-308); Glomerular Filtration Rate 100.7 mL/min (90-130); Glucose 207 mg/dL (65-115); Lipase 27 U/L (13-60); NT Pro B Type Natriuretic Pept 655 pg/mL (0-125); Osmolality Calculated 275 mOsm/kg (285-295); Potassium 4.6 mmol/L (3.5-5.1); Sodium 129 mmol/L (136-145); Total Bilirubin 0.6 mg/dL (0.15-1.2); Total Protein 7.5 g/dL (6.6-8.7)
[2023-03-07] MEDS: vancomycin 1,000 MG in sodium chloride 0.9% 250 ML 250 MG IV (09:34)
[2023-03-07 09:52] LABS: Urine Appearance Cloudy (CLEAR); Urine Color Dark Yellow (Yellow); pH Urine 5 (5-7)
[2023-03-07 09:53] LABS: Add Urine Culture? Yes; Add Urine Microscopic? YES; Bacteria Urine 1+ /hpf; Bilirubin Urine 1+ (Negative); Blood Urine 2+ (Negative); Glucose Urine UA Trace (Normal); Ketones Urine 1+ (Negative); Leukocyte Esterase Urine 2+ (Negative); Mucus Urine TRACE /hpf; Nitrate Urine Negative (Negative); Protein Urine 3+ (Negative); Squamous Epithelial Cell Urine 0-4 /hpf (0-5); Urobilinogen Urine 1 mg/dL (Negative)
--- NOTE | 2023-03-07 10:09 | PM.HP ---
Providers/Chief Complaint Admitting Physician: Wyatt Plummer MD Primary Care Provider: Milind Kohler Chief Complaint: Chest Pain/ SOB History of Present Illness Eligio Knox is a 52 year old male who presents to the emergency department with complaints of shortness of breath and chest pressure. He reports he has trouble taking a big deep breath secondary to his swelling. He reports it has been bad for weeks but much worse since last night. No nausea, vomiting, fever, cough. Believes his legs are swelling more and more. Denies any blood in his stool, black or tarry stools. Has known history of diastolic heart failure. When describing his chest discomfort he indicates right and left chest with difficulty getting a deep breath. No radiation of discomfort. Review of Systems General: Reports: 10 or more systems reviewed and unremarkable except in HPI and below Card: Reports: chest pain, swelling of feet/ankles and dyspnea on exertion Resp: Reports: dyspnea; Denies: productive cough or non-productive cough GI: Denies: abdominal pain, nausea, vomiting or melena Medications/Allergies Home Medications Medication Instructions Recorded Confirmed Last Taken Type amlodipine 10 mg tablet 10 mg PO DAILY 12/27/21 03/07/23 03/06/23 History atenolol 50 mg tablet 50 mg PO BID 12/27/21 03/07/23 03/06/23 History lisinopril 20 mg tablet 20 mg PO DAILY 12/27/21 03/07/23 03/06/23 History simvastatin 20 mg tablet 20 mg PO DAILY 12/27/21 03/07/23 03/06/23 History furosemide 20 mg tablet (Lasix) 20 mg PO DAILY #30 tabs 01/13/22 03/07/23 03/06/23 Rx Allergies Allergy/AdvReac Type Severity Reaction Status Date / Time Penicillins Allergy Intermediate Unknown Verified 03/07/23 08:38 PFSH Acute PFSH: Medical History (Updated 03/07/23 @ 10:23 by Wyatt Plummer MD) Alcohol abuse Diabetes Diastolic dysfunction Edema Hyperlipidemia Hypertension Hyponatremia Psoriasis Pulmonary vascular congestion Tobacco dependency Surgical History (Updated 03/07/23 @ 10:11 by Wyatt Plummer MD) Hx of appendectomy Hx of umbilical hernia repair S/P excisional debridement Family History Father Stroke Brother CAD (coronary artery disease) Dementia Stroke Family/Other Cancer Diabetes Denies family history of Clotting disorder Chronic kidney disease (CKD) Suicide Anesthesia complication Bleeding disorder Lung disease Social History (Updated 03/07/23 @ 10:11 by Wyatt Plummer MD) Smoking and tobacco status: current every day smoker Alcohol intake: current Vitals/I&O/Wt Last Vital Signs Temp 97.7 F 03/07/23 08:46 Pulse 50 L 03/07/23 09:24 Resp 20 H 03/07/23 09:14 BP 177/68 03/07/23 09:24 Pulse Ox 98 03/07/23 09:24 O2 Del Method BiPAP 03/07/23 09:24 O2 Flow Rate 5 03/07/23 08:46 FiO2 40 03/07/23 09:14 Weight last 48 hrs Weight 172.365 kg Physical Exam Narrative: General exam is a white male, currently on BiPAP, with obvious tachypnea HEENT: Atraumatic and normocephalic. Oropharynx not examined is on BiPAP. Neck is supple no lymphadenopathy or thyromegaly Cardiovascular bradycardic, regular, no murmur Lungs diminished breath sounds bilaterally. No crackles heard. Currently on BiPAP. Abdomen bowel sounds noted. Has abdominal wall edema. Scattered psoriasis. Folds demonstrate yeast Back demonstrates significant Psoriatec plaques on his buttocks Extremities demonstrate 4+ edema with Psoriatec change, erythema. Distal cap refill intact Skin psoriasis plaques noted Neuro no focal deficits Urinary Catheter Management: Zelaya: Cath Placed During This Visit: yes Reason for Continuing Indwelling Catheter: Accurate Measurement of Urinary Output in Critically Ill Patients Urinary Catheter Date of Insertion: 03/07/23 Urinary Catheter Time of Insertion: 09:21 Data 03/07/23 08:39 03/07/23 08:39 Other Labs: Initial ABG demonstrates a pH 7.22, PCO2 76, PO2 of 120 on 5 L LFTs normal with exception of alk phos of 145 CK 35 Troponin 13 BNP 655 Lipase, albumin, lactic acid, calcium normal Urinalysis with 2+ leukocyte esterase 5-10 reds, 10-15 whites. 1+ bacteria. 3+ protein. Serum ketones negative Chest x-ray which I reviewed demonstrates interstitial lower lobe infiltrate EKG which I reviewed demonstrates sinus bradycardia, normal axis, nonspecific ST-T wave changes Blood and urine cultures have been obtained Micro: Microbiology 03/07/23 08:39 Blood Culture - Preliminary Blood SPECIMEN COLLECTED 03/07/23 08:49 Blood Culture - Preliminary Blood SPECIMEN COLLECTED A&P Assessment and plan (1) Acute respiratory failure with hypoxia and hypercapnia: Patient presents with acute hypoxic and hypercarbic respiratory failure Continue BiPAP currently. Wean as tolerated. When goes on nasal cannula, O2 sat of 88 to 92% okay to prevent CO2 retention. DuoNeb every 4 hours, budesonide twice daily Suspect he has severe sleep apnea as well, and should be placed on BiPAP whenever sleeping Needs close monitoring in the ICU secondary to significant risk for decompensation and need for mechanical ventilation. (2) Hyponatremia: Patient with significant hyponatremia. Check TSH Adrenal insufficiency not likely. Likely his hyponatremia is secondary to diastolic heart failure. This should improve with diuresis. BMP daily (3) Cellulitis: Patient with cellulitis, superimposed on his chronic venous stasis as well as severe psoriasis that has been untreated Continue vancomycin currently (4) Acute exacerbation of chronic obstructive pulmonary disease (COPD): See above under respiratory failure (5) Acute diastolic heart failure: Patient with acute diastolic heart failure. Last echocardiogram was October 2021 and extremely poor quality secondary to body habitus. EF was estimated to be about 50 to 55% with 2/4 diastolic dysfunction. I do not think repeat echocardiogram will be useful at this time. Continue Lasix 60 mg IV every 12 hours BMP daily, along with magnesium Secondary to his profound lower extremity edema and erythema we will also check venous duplex of his lower extremities bilaterally I believe his chest discomfort is secondary to his heart failure. Trend troponins. (6) Tinea cruris: Nystatin to skin folds twice daily (7) Diabetes: Check hemoglobin A1c Initiate sliding scale insulin (8) Tobacco dependency: Nicotine patch Encourage abstinence (9) Alcoholism: Patient with significant alcohol intake. He stands a chance of significant withdrawal. Continue to monitor in the ICU, initiate CIWA protocol Plan History of hypertension. He is slightly bradycardic. Continue his Norvasc, and lisinopril. Reduce his atenolol to 25 mg twice daily Multiple other medical problems as outlined in past medical history Full code Lovenox for DVT prophylaxis Attestations Medical Necessity Statement*: Will require greater than 2 midnight stay for evaluation and treatment of acute hypoxic and hypercarbic respiratory failure, associated with severe heart failure with anasarca in this patient with secondary skin infection Critical Care Time: The high probability of a clinically significant, sudden or life threatening deterioration of the patient's [pulmonary, infectious disease, cardiac] system(s) required my full and direct attention, intervention and personal management. The critical care time is as shown. This time is in addition to time spent performing any reported procedures but includes the following: [x] Data and vital sign review and interpretation [x] Patient assessment, examination and intervention [x] Documentation [x] Medication orders and management Critical Care Time (min): 59 Coding Level of Care Code Critical Care >/= 30 minutes Diagnoses Acute respiratory failure with hypoxia and hypercapnia J96.01; J96.02 Hyponatremia E87.1 Cellulitis L03.90 Acute exacerbation of chronic obstructive pulmonary disease (COPD) J44.1 Acute diastolic heart failure I50.31 Tinea cruris B35.6 Diabetes E11.9 Tobacco dependency F17.200 Alcoholism F10.20
[2023-03-07 10:14] LABS: ABG PCO2 66.8 mmHg (35-45); ABG PH Result 7.27 (7.35-7.45); Alveolar-Arterial Oxygen Gradi 15.8 mmHg (5-10); Arterial Blood Gas Hematocrit 52.8 % (42-52); Base Excess ABG 1.1 mmol/L (-2.0-2.0); Blood Gas Allen Test Pos; Blood Gas Operator Identificat WALCI; Blood Gas Sample Site Radial, left; Blood Gas Sample Type Arterial; Carboxyhemoglobin 11.4 %THgb (0.4-20.1); HCO3 ABG 30.5 mmol/L (22-26); HGB O2 Sat 85.3 % (95-100); Ionized Calcium Level - ABG 1.2 mmol/L (1.1-1.4); Methemoglobin 0.1 % (0.4-1.5); Oxygen Device BIPAP; Oxygen Saturation ABG 96.3; PO2 ABG 84.5 mmHg (80.0-100.0); Potassium Level - ABG 4.6 mmol/L (3.5-5.0); Total Hemoglobin 17.2 g/dL (14-18)
--- NOTE | 2023-03-07 10:32 | ECG_ITS ---
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 Measurements Intervals [place] Rate: 61 P: 0 DC: 0 QRS: 57 QRSD: 89 T: 61 QT: 445 QTc: 450 Interpretive Statements Possible sinus rhythm. Baseline artifact. Need to repeat MINIMAL ST DEPRESSION [0.025+ mV ST DEPRESSION] ABNORMAL RHYTHM ECG Compared to ECG 03/07/2023 08:26:49 ST (T wave) deviation now present Sinus bradycardia no longer present Sinus arrhythmia no longer present Electronically Signed On 03-07-2023 21:15:15 CDT by Michelle Leija M.D. [id number]
[2023-03-07 10:48] LABS: Estmated Average Glucose 180; Hemoglobin A1C 7.9 % (4.0-6.0)
[2023-03-07 10:56] LABS: Thyroid Stimulating Hormone 1.18 uIU/mL (0.27-4.20)
[2023-03-07 11:19] LABS: Troponin 5 2HR 14.96 ng/L (0-15); Troponin 5 2HR Delta 1.96 ABS# (0-10)
--- NOTE | 2023-03-07 11:27 | USCV_ITS ---
Eligio Knox Age: 52 Gender: M : 1970 Exam Date: 03/07/2023 12:44 Ordering Phys: Wyatt Plummer MD Technologist: Jarrell Farris Exam Location: [facility] [place]_ Indication: bilat swelling and lymphedema PROCEDURES: The venous duplex Doppler examination of both lower extremities was performed in the standard fashion. The following venous structures were evaluated: common femoral vein, profunda vein, proximal portion of the greater saphenous vein, superficial femoral vein, and the popliteal vein. FINDINGS: Normal 2-D Doppler and augmentation and compressibility throughout the lower extremity venous structures. Additional imaging through the proximal calf veins also reveals no thrombus. Limited evaluation of the greater saphenous vein is patent with no thrombus. CONCLUSIONS No DVT bilateral lower extremities. Technically difficult exam. Bilateral subcutaneous edema. Dr. Franci Boles DO (Electronically Signed) Final Date: 07 March 2023 14:48 S
[2023-03-07] MEDS: levofloxacin-dextrose 5 % 750 MG/150 ML PREMIX 100 MG IV (11:56)
[2023-03-07] MEDS: nicotine 21 mg Patch 1 PATCH TRANSDERMA (12:00)
[2023-03-07] MEDS: ipratropium-albuterol 3 mL Neb INHALATION ×3 (12:02→19:56)
[2023-03-07 12:40] LABS: Adenovirus Not Detected (NOT DETECT); Chlamydia Pneumoniae Not Detected (NOT DETECT); Coronavirus 229E,HKU1,NL63,OC4 Not Detected (NOT DETECT); Human Metapneumovirus Not Detected (NOT DETECT); Human Rhinovirus/Enterovirus Not Detected (NOT DETECT); Influenza A Not Detected (NOT DETECT); Influenza A H1 Not Detected (NOT DETECT); Influenza A H1-2009 Not Detected (NOT DETECT); Influenza A H3 Not Detected (NOT DETECT); Influenza B Not Detected (NOT DETECT); Mycoplasma Pneumoniae Not Detected (NOT DETECT); Parainfluenza Virus Type 1 Not Detected (NOT DETECT); Parainfluenza Virus Type 2 Not Detected (NOT DETECT); Parainfluenza Virus Type 3 Not Detected (NOT DETECT); Parainfluenza Virus Type 4 Not Detected (NOT DETECT); Respiratory Syncytial Virus A Not Detected (NOT DETECT); Respiratory Syncytial Virus B Not Detected (NOT DETECT); SARS-COV-2 Not Detected (NOT DETECT)
[2023-03-07] MEDS: insulin lispro 100 unit/1 mL SUBCUT ×3 (13:15→22:13)
[2023-03-07 13:17] LABS: Glucose Point of Care 144 mg/dL (70-110)
[2023-03-07] MEDS: methylPREDNISolone sod succ 60 MG in water for injection-sterile 0.96 ML 11.52 MG IVP (13:17)
[2023-03-07] MEDS: vancomycin 2,000 MG/400 ML PIGGYBACK 200 MG IV ×2 (14:20→23:38)
--- NOTE | 2023-03-07 14:32 | ECG_ITS ---
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 Measurements Intervals [place] Rate: 61 P: 0 SC: 0 QRS: 61 QRSD: 92 T: 69 QT: 428 QTc: 432 Interpretive Statements ATRIAL FIBRILLATION MINIMAL ST DEPRESSION [0.025+ mV ST DEPRESSION] ABNORMAL RHYTHM ECG Compared to ECG 03/07/2023 11:35:36 No significant changes Electronically Signed On 03-07-2023 21:16:39 CDT by Michelle Leija M.D. [id number]
[2023-03-07 15:53] LABS: Troponin 5 6HR 16.01 ng/L (0-15)
[2023-03-07 15:54] LABS: Troponin 5 6HR Delta 3.01 ng/L (0-12)
[2023-03-07 16:39] LABS: Glucose Point of Care 164 mg/dL (70-110)
[2023-03-07] MEDS: atenolol 50 mg Tablet 25 MG PO (17:34)
[2023-03-07] MEDS: LORazepam 2 mg/mL INJ 1 mL IVP (19:44)
[2023-03-07] MEDS: budesonide 0.5 mg/2 mL Neb INHALATION (19:56)
[2023-03-07 22:13] LABS: Glucose Point of Care 263 mg/dL (70-110)
[2023-03-08] VITALS (59 sets, daily range): BP systolic 101–158; BP diastolic 54–109; PULSE 51–70; RESP 14–33; TEMP 36.9; O2SAT 89–97
[2023-03-08] MEDS: ipratropium-albuterol 3 mL Neb INHALATION ×7 (00:11→23:30)
--- NOTE | 2023-03-08 02:33 | PC.NURSE ---
Refusing BIPAP: Pt ripped BIPAP, BP cuff, and gown off around 0200. Pt answers orientation questions correctly, not including the date. RT aware. Education provided on the importance and purpose of the BIPAP. PT is resistant to learning, stating, thats not what my problem is . Oxy mask @6L applied. SpO2 91%.
[2023-03-08 04:38] LABS: Basophils % 0.2 %; Lymphocytes # 0.6 10^3/uL (0.8-4.8); Lymphocytes % 5.5 %; Mean Corpuscular HGB Conc 30.8 g/dL (30-55); Mean Corpuscular Hemoglobin 32.1 pg (27-33); Mean Corpuscular Volume 104.3 fl (82-101); Mean Platelet Volume 10.2 fL (7.4-10.4); Monocytes # 0.4 10^3/uL (0.2-0.9); Monocytes % 3.3 %; Neutrophils # 10.53 10^3/uL (1.8-7.7); Neutrophils % 90.4 %; Nucleated Red Blood Cells % 0.2 %; Platelet Count 217 10^3/cmm (157-399); Red Cell Distribution Width 15.2 % (12.1-15.1); White Blood Count 11.64 10^3/uL (3.29-11.43)
[2023-03-08 04:56] LABS: Alanine Aminotransferase 15 U/L (0-41); Albumin Level 3.1 g/dL (3.5-5.2); Alkaline Phosphatase 122 U/L (40-130); Anion Gap 13.7 (5-19); Aspartate Amino Transferase 20 U/L (0-40); Blood Urea Nitrogen 20 mg/dL (6-20); Calcium 8.2 mg/dL (8.5-10.5); Carbon Dioxide 31 mmol/L (22-29); Chloride 97 mmol/L (98-107); Globulin 3.3 g/dL (1.3-4.6); Glomerular Filtration Rate 87.9 mL/min (90-130); Glucose 295 mg/dL (65-115); Osmolality Calculated 296 mOsm/kg (285-295); Potassium 5.7 mmol/L (3.5-5.1); Sodium 136 mmol/L (136-145); Total Bilirubin 0.4 mg/dL (0.15-1.2); Total Protein 6.4 g/dL (6.6-8.7)
--- NOTE | 2023-03-08 05:10 | PC.NURSE ---
Notified Dr. Bryson of Potassium of 5.7. New order to give 8am Lasix dose NOW and BMP @1200.
[2023-03-08] MEDS: FUROsemide 10 mg/mL SDV 10mL 60 MG IVP ×2 (05:16→19:56)
[2023-03-08] MEDS: vancomycin 2,000 MG/400 ML PIGGYBACK 200 MG IV ×2 (06:00→22:23)
[2023-03-08] MEDS: budesonide 0.5 mg/2 mL Neb INHALATION ×2 (07:43→20:17)
[2023-03-08] MEDS: levofloxacin-dextrose 5 % 750 MG/150 ML PREMIX 100 MG IV (08:25)
[2023-03-08] MEDS: insulin lispro 100 unit/1 mL SUBCUT ×4 (08:26→20:16)
[2023-03-08 08:29] LABS: Glucose Point of Care 179 mg/dL (70-110)
[2023-03-08 09:22] LABS: Potassium 4.9 mmol/L (3.5-5.1)
[2023-03-08 10:59] LABS: Glucose Point of Care 152 mg/dL (70-110)
[2023-03-08] MEDS: thiamine 100 mg Tablet PO (11:06)
[2023-03-08] MEDS: multivitamin therapeutic Tablet 1 TAB PO (11:06)
[2023-03-08] MEDS: folic acid 1 mg Tablet PO (11:07)
[2023-03-08] MEDS: predniSONE 20 mg Tablet 40 MG PO (11:07)
[2023-03-08] MEDS: pantoprazole DR 40 mg Tablet PO (11:07)
[2023-03-08] MEDS: atenolol 50 mg Tablet 25 MG PO ×2 (11:08→17:36)
[2023-03-08] MEDS: amlodipine 10 mg Tablet PO (11:08)
[2023-03-08] MEDS: atorvastatin 40 mg Tablet 20 MG PO (11:08)
[2023-03-08] MEDS: nicotine 21 mg Patch 1 PATCH TRANSDERMA (11:09)
[2023-03-08] MEDS: acetaZOLAMIDE 250 mg Tablet PO (11:18)
--- NOTE | 2023-03-08 13:51 | PM.PN ---
Subjective Subjective: Eligio reports he feels better. He diuresed 3650 over the last 24 hours. No chest pain. Less short of breath. Medications: Reviewed: Yes Vitals/I&O/Wt Last Vital Signs Temp 97.6 F 03/07/23 21:30 Pulse 53 L 03/08/23 13:23 Resp 19 H 03/08/23 11:12 BP 129/65 03/08/23 08:30 Pulse Ox 94 03/08/23 13:23 O2 Del Method Nasal Cannula 03/08/23 11:12 O2 Flow Rate 3 03/08/23 11:12 FiO2 30 03/08/23 13:23 03/07/23 03/08/23 03/08/23 22:59 06:59 14:59 Intake Total 750 / 1150.96 500 / 1650.96 Output Total 2300 / 2300 2600 / 4900 Balance -1550 / -1149.04 -2100 / -3249.04 Weight last 48 hrs Weight 173.045 kg Weight 172.365 kg Physical Exam Narrative: General exam taken off BiPAP for lunch, alert and oriented. Neck is supple no lymphadenopathy or thyromegaly Cardiovascular bradycardic, regular, no murmur Lungs diminished breath sounds bilaterally. No crackles heard. Abdomen bowel sounds noted. Has abdominal wall edema. Scattered psoriasis. Folds demonstrate yeast Back demonstrates significant Psoriatec plaques on his buttocks Extremities demonstrate 4+ edema Skin psoriasis plaques noted Urinary Catheter Management: Zelaya: Cath Placed During This Visit: yes Reason for Continuing Indwelling Catheter: Accurate Measurement of Urinary Output in Critically Ill Patients Urinary Catheter Date of Insertion: 03/07/23 Urinary Catheter Time of Insertion: 09:21 Data 03/08/23 04:13 03/08/23 08:45 Micro: Microbiology 03/07/23 09:11 Urine Culture - Preliminary Urine,Clean Catch 03/07/23 08:39 Blood Culture - Preliminary Blood NEGATIVE TO DATE 03/07/23 08:49 Blood Culture - Preliminary Blood NEGATIVE TO DATE A&P Assessment and plan (1) Acute respiratory failure with hypoxia and hypercapnia: Patient presents with acute hypoxic and hypercarbic respiratory failure Using BiPAP as needed, and when sleeping When goes on nasal cannula, O2 sat of 88 to 92% okay to prevent CO2 retention. Continue DuoNeb every 4 hours, budesonide twice daily Secondary to his respiratory failure, severe hypercarbic and hypoxic he may be a good candidate for noninvasive ventilator on discharge. Will have discharge planning evaluate. This could prevent multiple rehospitalization's. (2) Hyponatremia: Patient with significant hyponatremia. TSH normal Adrenal insufficiency not likely. Hyponatremia improving BMP daily (3) Cellulitis: Patient with cellulitis, superimposed on his chronic venous stasis as well as severe psoriasis that has been untreated Continue vancomycin currently (4) Acute exacerbation of chronic obstructive pulmonary disease (COPD): See above under respiratory failure (5) Acute diastolic heart failure: Patient with acute diastolic heart failure. Last echocardiogram was October 2021 and extremely poor quality secondary to body habitus. EF was estimated to be about 50 to 55% with 2/4 diastolic dysfunction. I do not think repeat echocardiogram will be useful at this time. Continue Lasix 60 mg IV every 12 hours Dose of acetazolamide today BMP daily, along with magnesium Venous duplex negative Troponin trend not concerning No reason to repeat echocardiogram. Will be extremely poor quality. (6) Tinea cruris: Nystatin to skin folds twice daily (7) Diabetes: A1c elevated as expected Continue sliding scale insulin (8) Tobacco dependency: Nicotine patch Encourage abstinence (9) Alcoholism: Patient with significant alcohol intake. He stands a chance of significant withdrawal. Continue to monitor in the ICU, initiate CIWA protocol Plan UTI. Continue Levaquin. Await culture. Note that he is penicillin allergic. History of hypertension. He is slightly bradycardic. Continue his Norvasc, and lisinopril. Continue reduced dose of atenolol Multiple other medical problems as outlined in past medical history Full code Lovenox for DVT prophylaxis Attestations Medical Necessity Statement*: Needs continued hospitalization for diuresis secondary to acute diastolic heart failure, COPD exacerbation, cellulitis. Diagnoses Acute respiratory failure with hypoxia and hypercapnia J96.01; J96.02 Hyponatremia E87.1 Cellulitis L03.90 Acute exacerbation of chronic obstructive pulmonary disease (COPD) J44.1 Acute diastolic heart failure I50.31 Tinea cruris B35.6 Diabetes E11.9 Tobacco dependency F17.200 Alcoholism F10.20 Time Spent (min) 35
[2023-03-08 15:11] LABS: Vancomycin Trough 26.2 ug/mL (10-15)
[2023-03-08 17:32] LABS: Glucose Point of Care 216 mg/dL (70-110)
[2023-03-08 20:12] LABS: Glucose Point of Care 337 mg/dL (70-110)
[2023-03-08] MEDS: acetaminophen 325 mg Tablet 650 MG PO (22:33)
[2023-03-09] VITALS (48 sets, daily range): BP systolic 111–173; BP diastolic 57–103; PULSE 48–76; RESP 13–28; TEMP 36.6–37.1; O2SAT 86–99; BMI 43.2
[2023-03-09] MEDS: ipratropium-albuterol 3 mL Neb INHALATION ×6 (04:14→23:52)
[2023-03-09 04:48] LABS: Basophils % 0.3 %; Hematocrit 48.5 % (37-53); Lymphocytes # 1.4 10^3/uL (0.8-4.8); Lymphocytes % 11.7 %; Mean Corpuscular HGB Conc 31.1 g/dL (30-55); Mean Corpuscular Hemoglobin 32.3 pg (27-33); Mean Corpuscular Volume 103.6 fl (82-101); Mean Platelet Volume 10.3 fL (7.4-10.4); Monocytes # 0.9 10^3/uL (0.2-0.9); Monocytes % 7.4 %; Neutrophils # 9.25 10^3/uL (1.8-7.7); Neutrophils % 80.1 %; Nucleated Red Blood Cells % 0 %; Platelet Count 185 10^3/cmm (157-399); Red Blood Count 4.68 10^6/uL (3.85-5.65); Red Cell Distribution Width 15.2 % (12.1-15.1); White Blood Count 11.54 10^3/uL (3.29-11.43)
[2023-03-09 05:13] LABS: Alanine Aminotransferase 16 U/L (0-41); Alkaline Phosphatase 106 U/L (40-130); Aspartate Amino Transferase 17 U/L (0-40); Blood Urea Nitrogen 25 mg/dL (6-20); Calcium 8.3 mg/dL (8.5-10.5); Carbon Dioxide 31 mmol/L (22-29); Chloride 96 mmol/L (98-107); Globulin 3.5 g/dL (1.3-4.6); Glomerular Filtration Rate 77.9 mL/min (90-130); Glucose 146 mg/dL (65-115); Magnesium 2.1 mg/dL (1.7-2.3); Osmolality Calculated 287 mOsm/kg (285-295); Sodium 135 mmol/L (136-145); Total Bilirubin 0.5 mg/dL (0.15-1.2); Total Protein 6.5 g/dL (6.6-8.7)
[2023-03-09 05:14] LABS: Anion Gap 12.6 (5-19); Potassium 4.6 mmol/L (3.5-5.1)
[2023-03-09] MEDS: budesonide 0.5 mg/2 mL Neb INHALATION ×2 (07:51→20:37)
--- NOTE | 2023-03-09 08:06 | PM.PN ---
Subjective Subjective: Larry reports he is breathing a lot better. Feels less swollen. No chest discomfort. Medications: Reviewed: Yes Vitals/I&O/Wt Last Vital Signs Temp 98.7 F 03/09/23 05:00 Pulse 54 L 03/09/23 07:56 Resp 17 03/09/23 07:50 BP 138/68 03/09/23 06:00 Pulse Ox 93 03/09/23 07:53 O2 Del Method BiPAP 03/09/23 07:50 O2 Flow Rate 3 03/09/23 06:00 FiO2 30 03/09/23 07:53 03/08/23 03/09/23 03/09/23 22:59 06:59 14:59 Intake Total 240 / 480 1360 / 1840 Output Total 1999 2450 / 4450 Balance -1760 / -1520 -1090 / -2610 Weight last 48 hrs Weight 165.561 kg Weight 173.045 kg Weight 172.365 kg Physical Exam Narrative: General exam alert and oriented Neck is supple no lymphadenopathy or thyromegaly Cardiovascular bradycardic, regular, no murmur Lungs clear Abdomen bowel sounds noted. Has abdominal wall edema. Scattered psoriasis. Folds demonstrate yeast Extremities demonstrate 1+ edema Urinary Catheter Management: Zelaya: Cath Placed During This Visit: yes Reason for Continuing Indwelling Catheter: Accurate Measurement of Urinary Output in Critically Ill Patients Urinary Catheter Date of Insertion: 03/07/23 Urinary Catheter Time of Insertion: 09:21 Data 03/09/23 04:11 03/09/23 04:11 Micro: Microbiology 03/07/23 09:11 Urine Culture - Preliminary Urine,Clean Catch 03/07/23 08:39 Blood Culture - Preliminary Blood NEGATIVE TO DATE 03/07/23 08:49 Blood Culture - Preliminary Blood NEGATIVE TO DATE A&P Assessment and plan (1) Acute respiratory failure with hypoxia and hypercapnia: Patient presents with acute hypoxic and hypercarbic respiratory failure Using BiPAP as needed, and when sleeping When goes on nasal cannula, O2 sat of 88 to 92% okay to prevent CO2 retention. Continue DuoNeb every 4 hours, budesonide twice daily Prednisone 40 mg p.o. daily Secondary to his respiratory failure, severe hypercarbic and hypoxic he may be a good candidate for noninvasive ventilator on discharge. Will have discharge planning evaluate. This could prevent multiple rehospitalizations Overall improving. Reduce Lasix to 60 mg IV every 24 hours. Moved out of ICU to cardiac stepdown unit Up and out of bed today Continue BMP daily to monitor for renal toxicity on IV Lasix (2) Hyponatremia: Patient with significant hyponatremia. TSH normal Adrenal insufficiency not likely. This has essentially normalized BMP daily (3) Cellulitis: Patient with cellulitis, superimposed on his chronic venous stasis as well as severe psoriasis that has been untreated At this point can discontinue IV vancomycin. Changed to p.o. doxycycline (4) Acute exacerbation of chronic obstructive pulmonary disease (COPD): See above under respiratory failure (5) Acute diastolic heart failure: Patient with acute diastolic heart failure. Last echocardiogram was October 2021 and extremely poor quality secondary to body habitus. EF was estimated to be about 50 to 55% with 2/4 diastolic dysfunction. I do not think repeat echocardiogram will be useful at this time. Reduce Lasix to every 24 hours Repeat dose of acetazolamide today BMP daily, along with magnesium Venous duplex negative Troponin trend not concerning (6) Tinea cruris: Nystatin to skin folds twice daily (7) Diabetes: A1c elevated as expected Continue sliding scale insulin Consider metformin at discharge (8) Tobacco dependency: Nicotine patch Encourage abstinence (9) Alcoholism: Patient with significant alcohol intake. He stands a chance of significant withdrawal. No withdrawal has been apparent. Plan UTI. Continue Levaquin. Urine culture no growth to date. If final is negative discontinue Levaquin History of hypertension. He is slightly bradycardic. Continue his Norvasc, and lisinopril. Continue reduced dose of atenolol. Blood pressure under control currently. Multiple other medical problems as outlined in past medical history Full code Lovenox for DVT prophylaxis Attestations Medical Necessity Statement*: Needs continued hospitalization for further diuresis secondary to his acute diastolic heart failure. Diagnoses Acute respiratory failure with hypoxia and hypercapnia J96.01; J96.02 Hyponatremia E87.1 Cellulitis L03.90 Acute exacerbation of chronic obstructive pulmonary disease (COPD) J44.1 Acute diastolic heart failure I50.31 Tinea cruris B35.6 Diabetes E11.9 Tobacco dependency F17.200 Alcoholism F10.20 Time Spent (min) 25
[2023-03-09 08:30] LABS: Glucose Point of Care 127 mg/dL (70-110)
[2023-03-09] MEDS: nicotine 21 mg Patch 1 PATCH TRANSDERMA (09:01)
[2023-03-09] MEDS: pantoprazole DR 40 mg Tablet PO (09:02)
[2023-03-09] MEDS: thiamine 100 mg Tablet PO (09:02)
[2023-03-09] MEDS: doxycycline 100 mg Tablet PO ×2 (09:03→17:50)
[2023-03-09] MEDS: acetaZOLAMIDE 250 mg Tablet PO (09:03)
[2023-03-09] MEDS: atenolol 50 mg Tablet 25 MG PO ×2 (09:04→17:50)
[2023-03-09] MEDS: folic acid 1 mg Tablet PO (09:04)
[2023-03-09] MEDS: FUROsemide 10 mg/mL SDV 10mL 60 MG IVP (09:04)
[2023-03-09] MEDS: atorvastatin 40 mg Tablet 20 MG PO (09:04)
[2023-03-09] MEDS: predniSONE 20 mg Tablet 40 MG PO (09:04)
[2023-03-09] MEDS: multivitamin therapeutic Tablet 1 TAB PO (09:04)
[2023-03-09] MEDS: levofloxacin-dextrose 5 % 750 MG/150 ML PREMIX 100 MG IV (09:05)
[2023-03-09] MEDS: amlodipine 10 mg Tablet PO (09:05)
[2023-03-09] MEDS: nystatin cream 30 gm 1 APPLIC TOPICAL ×2 (09:21→17:52)
--- NOTE | 2023-03-09 11:35 | PC.NURSE ---
Report called to [facility] and given to TETO Mejia. All questions answered. Report also given to TETO Hale
[2023-03-09] MEDS: insulin lispro 100 unit/1 mL SUBCUT ×3 (12:02→20:10)
[2023-03-09 12:06] LABS: Glucose Point of Care 153 mg/dL (70-110)
--- NOTE | 2023-03-09 12:34 | PC.NURSE ---
Patient and belongings taken to [facility] room 105-1. Bedside report to Roberto IRENE.
--- NOTE | 2023-03-09 12:45 | PC.NURSE ---
Pt arrived via pa-bed and placed in room 105
[2023-03-09 16:55] LABS: Glucose Point of Care 211 mg/dL (70-110)
[2023-03-09 20:06] LABS: Glucose Point of Care 271 mg/dL (70-110)
[2023-03-10] VITALS (17 sets, daily range): BP systolic 135–157; BP diastolic 63–87; PULSE 50–106; RESP 16–25; TEMP 36.9–37.3; O2SAT 89–94
[2023-03-10 04:01] LABS: Basophils % 0.3 %; Eosinophils % 0.1 %; Hematocrit 48.7 % (37-53); Lymphocytes # 1.5 10^3/uL (0.8-4.8); Lymphocytes % 16.3 %; Mean Corpuscular HGB Conc 31.4 g/dL (30-55); Mean Corpuscular Hemoglobin 32.5 pg (27-33); Mean Corpuscular Volume 103.4 fl (82-101); Mean Platelet Volume 9.9 fL (7.4-10.4); Monocytes # 0.8 10^3/uL (0.2-0.9); Neutrophils # 6.75 10^3/uL (1.8-7.7); Neutrophils % 73.8 %; Nucleated Red Blood Cells % 0 %; Platelet Count 166 10^3/cmm (157-399); Red Blood Count 4.71 10^6/uL (3.85-5.65); Red Cell Distribution Width 14.7 % (12.1-15.1); White Blood Count 9.15 10^3/uL (3.29-11.43)
[2023-03-10 04:24] LABS: Anion Gap 11.2 (5-19); Blood Urea Nitrogen 23 mg/dL (6-20); Calcium 8.6 mg/dL (8.5-10.5); Carbon Dioxide 33 mmol/L (22-29); Chloride 97 mmol/L (98-107); Glomerular Filtration Rate 87.9 mL/min (90-130); Glucose 142 mg/dL (65-115); Magnesium 2.1 mg/dL (1.7-2.3); Osmolality Calculated 290 mOsm/kg (285-295); Potassium 4.2 mmol/L (3.5-5.1); Sodium 137 mmol/L (136-145)
[2023-03-10 06:22] LABS: Glucose Point of Care 105 mg/dL (70-110)
[2023-03-10] MEDS: ipratropium-albuterol 3 mL Neb INHALATION ×4 (08:06→20:04)
[2023-03-10] MEDS: budesonide 0.5 mg/2 mL Neb INHALATION ×2 (08:06→20:04)
[2023-03-10] MEDS: nicotine 21 mg Patch 1 PATCH TRANSDERMA (08:55)
[2023-03-10] MEDS: FUROsemide 10 mg/mL SDV 10mL 60 MG IVP (08:57)
[2023-03-10] MEDS: atenolol 50 mg Tablet 25 MG PO ×2 (09:00→17:13)
[2023-03-10] MEDS: multivitamin therapeutic Tablet 1 TAB PO (09:00)
[2023-03-10] MEDS: pantoprazole DR 40 mg Tablet PO (09:00)
[2023-03-10] MEDS: doxycycline 100 mg Tablet PO ×2 (09:00→17:13)
[2023-03-10] MEDS: folic acid 1 mg Tablet PO (09:00)
[2023-03-10] MEDS: amlodipine 10 mg Tablet PO (09:01)
[2023-03-10] MEDS: thiamine 100 mg Tablet PO (09:01)
[2023-03-10] MEDS: predniSONE 20 mg Tablet 40 MG PO (09:01)
[2023-03-10] MEDS: atorvastatin 40 mg Tablet 20 MG PO (09:01)
[2023-03-10] MEDS: nystatin cream 30 gm 1 APPLIC TOPICAL ×2 (09:02→17:14)
--- NOTE | 2023-03-10 10:14 | P.PN_ITS ---
Subjective Subjective: Eligio reports he feels better. Less swollen. Still on some oxygen. Less short of breath when he gets up. Medications: Reviewed: Yes Vitals/I&O/Wt Last Vital Signs Temp 99.1 F 03/10/23 00:00 Pulse 63 03/10/23 08:11 Resp 18 03/10/23 08:06 BP 146/69 03/10/23 07:29 Pulse Ox 94 03/10/23 08:11 O2 Del Method Nasal Cannula 03/10/23 08:11 O2 Flow Rate 5 03/10/23 08:11 FiO2 30 03/09/23 19:07 03/09/23 03/10/23 03/10/23 22:59 06:59 14:59 Intake Total 1270 / 2720 240 / 2960 360 / 360 Output Total 2040 / 4440 2600 / 7040 1010 / 1010 Balance -770 / -1720 -2360 / -4080 -650 / -650 Weight last 48 hrs Weight 165.561 kg Physical Exam Narrative: General exam no distress, conversant Neck is supple no lymphadenopathy or thyromegaly Cardiovascular regular rate and rhythm without murmur Lungs clear, diminished breath sounds bilaterally Abdomen bowel sounds noted. Has abdominal wall edema. Scattered psoriasis. Folds demonstrate yeast Extremities demonstrate 1+ edema, much improved. Urinary Catheter Management: Zelaya: Cath Placed During This Visit: yes Reason for Continuing Indwelling Catheter: Acute Urinary Retention or Obstruction Urinary Catheter Date of Insertion: 03/07/23 Urinary Catheter Time of Insertion: 09:21 Data 03/10/23 03:41 03/10/23 03:41 Micro: Microbiology 03/07/23 09:11 Urine Culture - Final Urine,Clean Catch A&P Assessment and plan (1) Acute respiratory failure with hypoxia and hypercapnia: Patient presents with acute hypoxic and hypercarbic respiratory failure Using BiPAP as needed, and when sleeping When goes on nasal cannula, O2 sat of 88 to 92% okay to prevent CO2 retention. Continue DuoNeb every 4 hours, budesonide twice daily Prednisone 40 mg p.o. daily Secondary to his respiratory failure, severe hypercarbic and hypoxic he may be a good candidate for noninvasive ventilator on discharge. Will have discharge planning evaluate. This could prevent multiple rehospitalizations. He certainly has obesity hypoventilation, hypercarbia. He has not had repetitive hospitalizations as of yet. He may not qualify on discharge, but would be a good patient to have pulmonary follow-up with formal PFT testing. Overall improving. Reduce Lasix to 60 mg IV every 24 hours. He has diuresed again significantly and overall is 10.5 L down Continue BMP daily to monitor for renal toxicity on IV Lasix Overnight oximetry (2) Hyponatremia: Patient with significant hyponatremia. TSH normal Adrenal insufficiency not likely. This has normalized BMP daily (3) Cellulitis: Patient with cellulitis, superimposed on his chronic venous stasis as well as severe psoriasis that has been untreated Changed to p.o. doxycycline on March 09 (4) Acute exacerbation of chronic obstructive pulmonary disease (COPD): See above under respiratory failure (5) Acute diastolic heart failure: Patient with acute diastolic heart failure. Last echocardiogram was October 2021 and extremely poor quality secondary to body habitus. EF was estimated to be about 50 to 55% with 2/4 diastolic dysfunction. I do not think repeat echocardiogram will be useful at this time. Continue Lasix IV every 24 hours Repeat dose of acetazolamide today BMP daily, along with magnesium Venous duplex negative Troponin trend not concerning (6) Tinea cruris: Nystatin to skin folds twice daily (7) Diabetes: A1c elevated as expected Continue sliding scale insulin Consider metformin at discharge (8) Tobacco dependency: Nicotine patch Encourage abstinence (9) Alcoholism: Patient with significant alcohol intake. He stands a chance of significant withdrawal. Discontinue CIWA protocol. He is not withdrawing greater than 3 days into hospital stay Plan UTI. Ultimately urine culture negative. Levaquin discontinued History of hypertension. He is slightly bradycardic. Continue his Norvasc, and lisinopril. Continue reduced dose of atenolol. Blood pressure under control currently. Multiple other medical problems as outlined in past medical history Full code Lovenox for DVT prophylaxis Possible discharge in the next 1 to 2 days Attestations Medical Necessity Statement*: Needs continued hospital stay for significant acute diastolic heart failure with need for further diuresis. Coding Level of Care Code Acute Code for [facility] Diagnoses Acute respiratory failure with hypoxia and hypercapnia J96.01; J96.02 Hyponatremia E87.1 Cellulitis L03.90 Acute exacerbation of chronic obstructive pulmonary disease (COPD) J44.1 Acute diastolic heart failure I50.31 Tinea cruris B35.6 Diabetes E11.9 Tobacco dependency F17.200 Alcoholism F10.20
[2023-03-10] MEDS: acetaZOLAMIDE 250 mg Tablet PO (10:43)
[2023-03-10 11:03] LABS: Glucose Point of Care 137 mg/dL (70-110)
[2023-03-10 17:10] LABS: Glucose Point of Care 263 mg/dL (70-110)
[2023-03-10] MEDS: insulin lispro 100 unit/1 mL SUBCUT ×2 (17:13→20:06)
[2023-03-10 20:01] LABS: Glucose Point of Care 220 mg/dL (70-110)
[2023-03-11] VITALS (19 sets, daily range): BP systolic 135–161; BP diastolic 58–78; PULSE 50–81; RESP 16–27; TEMP 36.6–36.8; O2SAT 91–96
[2023-03-11] MEDS: ipratropium-albuterol 3 mL Neb INHALATION ×7 (00:01→23:26)
[2023-03-11 04:05] LABS: Anion Gap 8.9 (5-19); Blood Urea Nitrogen 24 mg/dL (6-20); Calcium 8.4 mg/dL (8.5-10.5); Carbon Dioxide 35 mmol/L (22-29); Chloride 98 mmol/L (98-107); Glomerular Filtration Rate 77.9 mL/min (90-130); Glucose 130 mg/dL (65-115); Magnesium 2.1 mg/dL (1.7-2.3); Osmolality Calculated 292 mOsm/kg (285-295); Potassium 3.9 mmol/L (3.5-5.1); Sodium 138 mmol/L (136-145)
[2023-03-11 06:11] LABS: Glucose Point of Care 112 mg/dL (70-110)
[2023-03-11] MEDS: budesonide 0.5 mg/2 mL Neb INHALATION ×2 (07:23→19:34)
[2023-03-11] MEDS: nicotine 21 mg Patch 1 PATCH TRANSDERMA (08:07)
[2023-03-11] MEDS: doxycycline 100 mg Tablet PO ×2 (08:08→17:14)
[2023-03-11] MEDS: pantoprazole DR 40 mg Tablet PO (08:08)
[2023-03-11] MEDS: atenolol 50 mg Tablet 25 MG PO ×2 (08:08→17:14)
[2023-03-11] MEDS: folic acid 1 mg Tablet PO (08:08)
[2023-03-11] MEDS: predniSONE 20 mg Tablet 40 MG PO (08:08)
[2023-03-11] MEDS: atorvastatin 40 mg Tablet 20 MG PO (08:08)
[2023-03-11] MEDS: amlodipine 10 mg Tablet PO (08:08)
[2023-03-11] MEDS: thiamine 100 mg Tablet PO (08:09)
[2023-03-11] MEDS: nystatin cream 30 gm 1 APPLIC TOPICAL ×2 (08:09→17:18)
[2023-03-11] MEDS: multivitamin therapeutic Tablet 1 TAB PO (08:09)
[2023-03-11] MEDS: FUROsemide 10 mg/mL SDV 10mL 60 MG IVP (08:10)
[2023-03-11 11:01] LABS: Glucose Point of Care 207 mg/dL (70-110)
[2023-03-11] MEDS: insulin lispro 100 unit/1 mL SUBCUT ×3 (11:03→20:10)
[2023-03-11 17:10] LABS: Glucose Point of Care 314 mg/dL (70-110)
--- NOTE | 2023-03-11 17:43 | PM.PN ---
Subjective Subjective: Patient presents with acute hypoxic and hypercarbic respiratory failure most likely due to obesity hypoventilation syndrome and heart failure. He was initially using a BiPAP. This was weaned to nasal cannula. Receiving IV Lasix with excellent diuresis He received the usual treatment with DuoNebs budesonide and prednisone. Patient seen in chair with present. He has no complaints today he and his note the decrease swelling. Vitals/I&O/Wt Last Vital Signs Temp 98.3 F 03/11/23 07:45 Pulse 72 03/11/23 17:37 Resp 24 H 03/11/23 17:37 BP 140/70 03/11/23 17:37 Pulse Ox 95 03/11/23 15:22 O2 Del Method Nasal Cannula 03/11/23 15:22 O2 Flow Rate 2 03/11/23 15:22 FiO2 30 03/10/23 20:06 03/11/23 03/11/23 03/11/23 06:59 14:59 22:59 Intake Total 240 / 1940 780 / 780 860 / 1640 Output Total 1600 / 4250 2790 / 2790 960 / 3750 Balance -1360 / -2310 -2009 / -2009 -100 / -2109 Physical Exam Narrative: Morbidly obese white male in no acute distress. Heart distant heart sounds without loud murmur click gallop or rub Lungs: Diminished likely due to restriction Abdomen. Obese nontender nondistended positive bowel sounds Extremities 3+ pitting edema up into the thighs. His right groin and suprapubic region appear to have a fungal infection. Urinary Catheter Management: Zelaya: Cath Placed During This Visit: yes Reason for Continuing Indwelling Catheter: Accurate Measurement of Urinary Output in Critically Ill Patients Urinary Catheter Date of Insertion: 03/07/23 Urinary Catheter Time of Insertion: 09:21 Data 03/10/23 03:41 03/11/23 03:36 A&P Assessment and plan (1) Acute respiratory failure with hypoxia and hypercapnia: Secondary obesity hypoventilation, on CHF.. Consider pulmonary follow-up when patient is at dry weight and with formal PFT testing. Overall improving. Reduce Lasix to 60 mg IV every 24 hours. He has diuresed again significantly and overall is 14 L down Continue BMP daily to monitor for renal toxicity on IV Lasix (2) Hyponatremia: Patient with significant hyponatremia likely due to acute renal failure. TSH normal Adrenal insufficiency not likely. This has normalized Follow BMP daily (3) Cellulitis: Patient with cellulitis, superimposed on his chronic venous stasis as well as severe psoriasis that has been untreated Changed to p.o. doxycycline on March 09 My impression is the patient has a fungal infection in his right groin and suprapubic area will dose with Diflucan if not already done. (4) Acute exacerbation of chronic obstructive pulmonary disease (COPD): See above under respiratory failure (5) Acute diastolic heart failure: Patient with acute diastolic heart failure. Last echocardiogram was October 2021 and extremely poor quality secondary to body habitus. EF was estimated to be about 50 to 55% with 2/4 diastolic dysfunction. I do not think repeat echocardiogram will be useful at this time. Continue Lasix IV BMP daily, along with magnesium Venous duplex negative Troponin trend not concerning (6) Tinea cruris: Nystatin to skin folds twice daily (7) Diabetes: A1c elevated as expected Continue sliding scale insulin Consider metformin at discharge (8) Tobacco dependency: Nicotine patch I strongly encouraged abstinence to both the patient and his today. I recommended treatment with nicotine patch and antidepressant for 1 year. I asked him to speak to the primary care physicians. (9) Alcoholism: He is not withdrawing greater than 3 days into hospital stay Plan UTI was ruled out and Levaquin discontinued. History of hypertension. He is slightly bradycardic. Continue his Norvasc, and lisinopril. Continue reduced dose of atenolol. Blood pressure under control currently. Multiple other medical problems as outlined in past medical history Full code Lovenox for DVT prophylaxis Possible discharge tomorrow Attestations Medical Necessity Statement*: Needs continued hospital stay for significant acute diastolic heart failure with need for further diuresis. Coding Level of Care Code Acute Code for [facility] Diagnoses Acute respiratory failure with hypoxia and hypercapnia J96.01; J96.02 Hyponatremia E87.1 Cellulitis L03.90 Acute exacerbation of chronic obstructive pulmonary disease (COPD) J44.1 Acute diastolic heart failure I50.31 Tinea cruris B35.6 Diabetes E11.9 Tobacco dependency F17.200 Alcoholism F10.20
[2023-03-11] MEDS: fluconazole 100 mg Tablet 150 MG PO (18:05)
[2023-03-11 20:05] LABS: Glucose Point of Care 256 mg/dL (70-110)
[2023-03-12] VITALS (9 sets, daily range): BP systolic 146–154; BP diastolic 68–77; PULSE 52–64; RESP 15–18; TEMP 36.7; O2SAT 91–100
[2023-03-12] MEDS: ipratropium-albuterol 3 mL Neb INHALATION ×3 (03:46→11:02)
[2023-03-12] MEDS: budesonide 0.5 mg/2 mL Neb INHALATION (07:07)
[2023-03-12 07:47] LABS: Glucose Point of Care 126 mg/dL (70-110)
[2023-03-12] MEDS: predniSONE 20 mg Tablet PO (08:46)
[2023-03-12] MEDS: doxycycline 100 mg Tablet PO (08:46)
[2023-03-12] MEDS: folic acid 1 mg Tablet PO (08:46)
[2023-03-12] MEDS: nicotine 21 mg Patch 1 PATCH TRANSDERMA (08:47)
[2023-03-12] MEDS: thiamine 100 mg Tablet PO (08:47)
[2023-03-12] MEDS: FUROsemide 10 mg/mL SDV 10mL 60 MG IVP (08:48)
[2023-03-12] MEDS: amlodipine 10 mg Tablet PO (08:48)
[2023-03-12] MEDS: multivitamin therapeutic Tablet 1 TAB PO (08:48)
[2023-03-12] MEDS: atenolol 50 mg Tablet 25 MG PO (08:48)
[2023-03-12] MEDS: atorvastatin 40 mg Tablet 20 MG PO (08:49)
[2023-03-12] MEDS: nystatin cream 30 gm 1 APPLIC TOPICAL (08:53)
--- NOTE | 2023-03-12 09:45 | P.DS_ITS ---
Discharge Providers Date of Admission: 03/07/23 10:07 Date of Discharge: March 12, 2023 Attending Provider at Admission: Wyatt Plummer MD Attending Provider at Discharge: Gildardo Franks DO Primary Care Provider: Milind Kohler Diagnoses at Discharge Discharge Diagnosis (1) Acute respiratory failure with hypoxia and hypercapnia: Status: Acute (2) Hyponatremia: Status: Acute (3) Cellulitis: Status: Acute (4) Acute exacerbation of chronic obstructive pulmonary disease (COPD): Status: Acute (5) Acute diastolic heart failure: Status: Acute (6) Tinea cruris: Status: Acute (7) Diabetes: Status: Acute (8) Tobacco dependency: Status: Acute (9) Alcoholism: Status: Acute Reason for Visit Reason for Visit: Chest Pain/ SOB Brief History: Eligio Knox is a 52 year old male who presents to the emergency department with complaints of shortness of breath and chest pressure.? He reports he has trouble taking a big deep breath secondary to his swelling.? He reports it has been bad for weeks but much worse since last night.? No nausea, vomiting, fever, cough.? Believes his legs are swelling more and more.? Denies any blood in his stool, black or tarry stools.? Has known history of diastolic heart failure.? When describing his chest discomfort he indicates right and left chest with difficulty getting a deep breath.? No radiation of discomfort Hospital Course Hospital Course Patient presents with acute hypoxic and hypercarbic respiratory failure most likely due to obesity hypoventilation syndrome and heart failure.? He was initially using a BiPAP.? This was weaned to nasal cannula.? Receiv received IV Lasix with excellent diuresis. He was net -14 L at day of discharge. He received the usual treatment with DuoNebs budesonide and prednisone for suspected COPD exacerbation. He was treated with doxycycline for a cellulitis. Please note that patient had to episodes of necrotizing fasciitis a few years ago. He has had extensive surgical intervention in that right upper leg and groin. He will likely always have edema in that leg due to the surgery. The cellulitis is markedly improved. He either has a yeast or fungal infection of that groin and suprapubic area. Received 1 dose of Diflucan. Patient will be discharged in stable and improved condition. He is being evaluated for home oxygen. He may qualify for short-term until further diuresis occurs. Recommended the following: * Quit smoking. Encourage you to work with your new primary care physician. Current recommendations are for nicotine replacement and antidepressant therapy for 1 to 2 years. * Quit alcohol use. As we discussed the inability of to sleep may be related to PTSD. I would encourage therapy. The therapy called EMDR is an actual treatment protocol for PTSD. Perhaps she could find a local therapist that is certified. However I know there are ones in [place] particularly at [facility] on [address]. * Weigh yourself daily. Upon rising go to the bathroom and weigh yourself. The goal is to lose 2 to 3 pounds a day of water weight. If you are not losing this amount please see your PCP. * Adjustments were made to your medications. * Decrease atenolol to 25 mg twice daily * Significantly decrease lisinopril to 2.5 mg daily. This may be able to be uptitrated as the fluid comes off and you do not have any kidney problems. * When you follow-up with your PCP asked for referral to for PT to gain strength. You may be a candidate for what is called cardiac rehab . * You are diabetic. At this time I am deferring to your PCP to start medications. Ideally you can make changes in your dietary intake first. Remember alcohol is a sugar and contributing to your diabetes. Physical Exam Narrative: Morbidly obese white male in no acute distress. Heart distant heart sounds without loud murmur click gallop or rub Lungs: Diminished likely due to restriction, decreased air movement. A few expiratory wheezes auscultated. Abdomen. Obese nontender nondistended positive bowel sounds Extremities 3+ pitting edema up into the thighs. His right groin and suprapubic region appear to have a fungal infection. Urinary Catheter Management: Zelaya: Cath Placed During This Visit: yes, but has since been removed by the nurse Reason for Continuing Indwelling Catheter: Does Not Meet Criteria Urinary Catheter Date of Insertion: 03/07/23 Urinary Catheter Time of Insertion: 09:21 Date Urinary Catheter Removed: 03/12/23 Time Urinary Catheter Discontinued: 09: Discharge Data Studies Completed and Pending Completed Studies During Hospitalization Category Date Time Status XR chest 1V portable [id number] Stat Exams 03/07/23 08:32 [place] [id number] Routine Ultrasound 03/07/23 11:27 Completed Radiology Impressions Chest X-Ray 03/07/23 08:32 IMPRESSION: No evidence of acute pulmonary process. Laboratory Results WBC 9.15 10^3/uL (3.29-11.43) 03/10/23 03:41 RBC 4.71 10^6/uL (3.85-5.65) 03/10/23 03:41 Hgb 15.30 g/dL (11.27-16.99) 03/10/23 03:41 Hct 48.7 % (37-53) 03/10/23 03:41 MCV 103.4 fl (82-101) H 03/10/23 03:41 MCH 32.5 pg (27-33) 03/10/23 03:41 MCHC 31.4 g/dL (30-55) 03/10/23 03:41 RDW 14.7 % (12.1-15.1) 03/10/23 03:41 Plt Count 166 10^3/cmm (157-399) 03/10/23 03:41 MPV 9.9 fL (7.4-10.4) 03/10/23 03:41 Neut % (Auto) 73.8 % 03/10/23 03:41 Lymph % (Auto) 16.3 % 03/10/23 03:41 Wise % (Auto) 9.0 % 03/10/23 03:41 Eos % (Auto) 0.1 % 03/10/23 03:41 Baso % (Auto) 0.3 % 03/10/23 03:41 Neut # (Auto) 6.75 10^3/uL (1.8-7.7) 03/10/23 03:41 Lymph # (Auto) 1.5 10^3/uL (0.8-4.8) 03/10/23 03:41 Wise # (Auto) 0.8 10^3/uL (0.2-0.9) 03/10/23 03:41 Eos # (Auto) 0.0 10^3/uL (0.0-0.8) 03/10/23 03:41 Baso # (Auto) 0.0 10^3/uL (0.0-0.1) 03/10/23 03:41 Nucleated RBC % (auto) 0 % 03/10/23 03:41 Nucleated RBCs # 0.0 /100WBC 03/10/23 03:41 Specimen Type Arterial 03/07/23 10:02 Sample Site Radial, left 03/07/23 10:02 ABG pH 7.27 (7.35-7.45) L 03/07/23 10:02 ABG pCO2 66.8 mmHg (35-45) H* 03/07/23 10:02 ABG pO2 84.5 mmHg (80.0-100.0) 03/07/23 10:02 ABG HCO3 30.5 mmol/L (22-26) H 03/07/23 10:02 ABG O2 Saturation 96.3 03/07/23 10:02 ABG Base Excess 1.1 mmol/L (-2.0-2.0) 03/07/23 10:02 Misha Test Pos 03/07/23 10:02 A-a O2 Gradient 15.8 mmHg (5-10) H 03/07/23 10:02 Hematocrit 52.8 % (42-52) H 03/07/23 10:02 Hgb O2 Saturation 85.3 % (95-100) L 03/07/23 10:02 Carboxyhemoglobin 11.4 %THgb (0.4-20.1) 03/07/23 10:02 Methemoglobin 0.1 % (0.4-1.5) L 03/07/23 10:02 Total Hemoglobin 17.2 g/dL (14-18) 03/07/23 10:02 Sodium 130.0 mmol/L (131-143) L 03/07/23 10:02 Potassium 4.6 mmol/L (3.5-5.0) 03/07/23 10:02 Glucose 194.0 mg/dL (70-115) H 03/07/23 10:02 Ionized Calcium 1.2 mmol/L (1.1-1.4) 03/07/23 10:02 O2 Delivery Device Bipap 03/07/23 10:02 O2 Liters/Min 5.0 % 03/07/23 08:58 FiO2 40.0 % 03/07/23 10:02 Machine Maintenance Repairer ID Walci 03/07/23 10:02 Sodium 138 mmol/L (136-145) 03/11/23 03:36 Potassium 3.9 mmol/L (3.5-5.1) 03/11/23 03:36 Chloride 98 mmol/L (98-107) 03/11/23 03:36 Carbon Dioxide 35 mmol/L (22-29) H 03/11/23 03:36 Anion Gap 8.9 (5-19) 03/11/23 03:36 BUN 24 mg/dL (6-20) H 03/11/23 03:36 Creatinine 1.0 mg/dL (0.7-1.2) 03/11/23 03:36 GFR Calculation 77.9 mL/min (90-130) L 03/11/23 03:36 Glucose 130 mg/dL (65-115) H 03/11/23 03:36 POC Glucose 126 mg/dL (70-110) H 03/12/23 07:29 Estimat Average Glucose 180 03/07/23 08:39 Hemoglobin A1c 7.9 % (4.0-6.0) H 03/07/23 08:39 Calculated Osmolality 292 mOsm/kg (285-295) 03/11/23 03:36 Lactic Acid 1.6 mmol/L (0.5-2.2) 03/07/23 08:39 Calcium 8.4 mg/dL (8.5-10.5) L 03/11/23 03:36 Magnesium 2.1 mg/dL (1.7-2.3) 03/11/23 03:36 Total Bilirubin 0.5 mg/dL (0.15-1.2) 03/09/23 04:11 AST 17 U/L (0-40) 03/09/23 04:11 ALT 16 U/L (0-41) 03/09/23 04:11 Alkaline Phosphatase 106 U/L (40-130) 03/09/23 04:11 Creatine Kinase 35 U/L (39-308) L 03/07/23 08:39 Troponin T Baseline 13 ng/L (0-15) 03/07/23 08:39 Troponin T 120 Minute 14.96 ng/L (0-15) 03/07/23 10:39 Delta Troponin T 1.96 ABS# (0-10) 03/07/23 10:39 Troponin T Hi Sens 6Hr 16.01 ng/L (0-15) H 03/07/23 15:05 Troponin T Hi Sens 6Hr Delta 3.01 ng/L (0-12) 03/07/23 15:05 NT-Pro-B Natriuret Pep 655 pg/mL (0-125) H 03/07/23 08:39 Total Protein 6.5 g/dL (6.6-8.7) L 03/09/23 04:11 Albumin 3.0 g/dL (3.5-5.2) L 03/09/23 04:11 Globulin 3.5 g/dL (1.3-4.6) 03/09/23 04:11 Lipase 27 U/L (13-60) 03/07/23 08:39 TSH 1.18 uIU/mL (0.27-4.20) 03/07/23 08:39 Urine Color Dark yellow (Yellow) 03/07/23 09:11 Urine Appearance Cloudy (CLEAR) A 03/07/23 09:11 Urine pH 5 (5-7) 03/07/23 09:11 Ur Specific Peel 1.020 (1.005-1.030) 03/07/23 09:11 Urine Protein 3+ (Negative) H 03/07/23 09:11 Urine Glucose (UA) Trace (Normal) H 03/07/23 09:11 Urine Ketones 1+ (Negative) H 03/07/23 09:11 Urine Blood 2+ (Negative) H 03/07/23 09:11 Urine Nitrate Negative (Negative) 03/07/23 09:11 Urine Bilirubin 1+ (Negative) H 03/07/23 09:11 Urine Urobilinogen 1 mg/dL (Negative) H 03/07/23 09:11 Ur Leukocyte Esterase 2+ (Negative) H 03/07/23 09:11 Urine RBC 5-10 /hpf (0-2) H 03/07/23 09:11 Urine WBC 10-15 /hpf (0-5) H 03/07/23 09:11 Ur Squamous Epith Cells 0-4 /hpf (0-5) H 03/07/23 09:11 Amorphous Sediment Not Reportable 03/07/23 09:11 Urine Bacteria 1+ /hpf (NONE) H 03/07/23 09:11 Hyaline Casts 5-10 /lpf H 03/07/23 09:11 Urine Mucus Trace /hpf 03/07/23 09:11 Vancomycin Trough 26.2 ug/mL (10-15) H* 03/08/23 13:56 Serum Ketones Negative (Negative) 03/07/23 08:39 Coronavirus 229E (PCR) Not detected (NOT DETECT) 03/07/23 10:28 SARS-CoV-2 (PCR) Not detected (NOT DETECT) 03/07/23 10:28 Vitals Last Vital Signs Temp 98.1 F 03/12/23 03:42 Pulse 55 L 03/12/23 07:11 Resp 15 03/12/23 07:11 BP 154/77 03/12/23 03:42 Pulse Ox 93 03/12/23 09:44 O2 Del Method Nasal Cannula 03/12/23 07:11 O2 Flow Rate 2 03/12/23 07:11 FiO2 30 03/12/23 07:47 Discharge Plan Discharge Patient Disposition: Home Condition: Stable Prescriptions: New doxycycline monohydrate 100 mg Tablet 100 mg PO BID Qty: 14 0RF nystatin 100,000 unit/gram Cream 1 applic topical BID Qty: 1 0RF nicotine 21 mg/24 hr Patch 24 Hour 1 patch transdermal DAILY Qty: 30 0RF Vitamin B-1 (mononitrate) 100 mg Tablet 100 mg PO DAILY Qty: 30 0RF Thera 400 mcg Tablet 1 tab PO DAILY Qty: 30 0RF budesonide 0.5 mg/2 mL Suspension For Nebulization 0.5 mg inhalation BID.RESPIRATORY Qty: 1 0RF atenolol 25 mg tablet 25 mg PO BID Qty: 60 0RF lisinopril 2.5 mg tablet 2.5 mg PO DAILY Qty: 30 0RF Continued amlodipine 10 mg tablet 10 mg PO DAILY Changed simvastatin 20 mg tablet 20 mg PO BEDTIME Qty: 30 0RF furosemide [Lasix] 20 mg tablet See Rx Instructions .ROUTE .COMPLEX Qty: 60 0RF Rx Instructions: 40 mg orally upon waking, and 40 mg around 6-7 hours later in day. This will prevent night time urination Discontinued lisinopril 20 mg tablet 20 mg PO DAILY atenolol 50 mg tablet 50 mg PO BID Discharge Orders: Discharge Order (Routine); Ordered 03/12/23 Ordered By: Gildardo Franks Referrals: Milind Kohler [Primary Care Provider] - Discharge Diet: Low Salt and Low Cholesterol Discharge Activity: Increase activity as tolerated Patient Instructions: Heart Failure (DC), CHF Stoplight Plan of Treatment: Recommend the following: * Quit smoking. Encourage you to work with your new primary care physician. Current recommendations are for nicotine replacement and antidepressant therapy for 1 to 2 years. * Quit alcohol use. As we discussed the inability of to sleep may be related to PTSD. I would encourage therapy. The therapy called EMDR is an actual treatment protocol for PTSD. Perhaps she could find a local therapist that is certified. However I know there are ones in [place] particularly at [facility] on [address]. * Weigh yourself daily. Upon rising go to the bathroom and weigh yourself. The goal is to lose 2 to 3 pounds a day of water weight. If you are not losing this amount please see your PCP. * Adjustments were made to your medications. * Decrease atenolol to 25 mg twice daily * Significantly decrease lisinopril to 2.5 mg daily. This may be able to be uptitrated as the fluid comes off and you do not have any kidney problems. * When you follow-up with your PCP asked for referral to for PT to gain strength. You may be a candidate for what is called cardiac rehab . * You are diabetic. At this time I am deferring to your PCP to start medications. Ideally you can make changes in your dietary intake first. Remember alcohol is a sugar and contributing to your diabetes. Discharge Attestations Time Spent in Discharge Care*: greater than 30 min Quality Metrics Clinical Quality Measures [ No reported AMI, CVA or VTE this stay] Coding Level of Care Code Acute Code for [facility] Diagnoses Acute respiratory failure with hypoxia and hypercapnia J96.01; J96.02 Hyponatremia E87.1 Cellulitis L03.90 Acute exacerbation of chronic obstructive pulmonary disease (COPD) J44.1 Acute diastolic heart failure I50.31 Tinea cruris B35.6 Diabetes E11.9 Tobacco dependency F17.200 Alcoholism F10.20
--- NOTE | 2023-03-12 12:10 | PC.NURSE ---
While trying to go over d/c instructions with the pt and his , it seems that they kept giving excuses why things can't be done. The stated that they can't weigh the pt everyday because there aren't any scales that can weigh his weight. I informed the that there are scales that can weigh his weight and they may have to go on [employer] or get with the pharmacist at [facility] to try and find scales that can weigh him but that it was imperative to know whether he is gaining or losing weight for his CHF monitoring. The pt stated that he has a problem with low sodium and I informed that pt that he needed to get with his PCP to find out what is a safe level of sodium for him as sodium will cause him to retain fluid. Then the pt started complaining that he does not have an alcohol problem and that he goes through a bottle every 4-5 days. I unfortunately gave up on educating the pt and his as it did not seem that they were receptive but rather argumentative and giving excuses why things can't work rather than being open and trying to figure out how it can work or find a work around.
--- NOTE | 2023-03-12 12:35 | PC.NURSE ---
Discharge Note Patient discharged to [home] via [w/c to POV] accompanied by [spouse]. Discharge instructions reviewed with patient and/or brand representative. Mobile pharmacy medications and/or prescriptions provided. Belongings/home medications returned.
--- NOTE | 2023-03-12 13:27 | PC.NURSE ---
Called [facility] for pa bed equipment and spoke to Marylu who gave me a reference #[id number]
== END 2023-03-12 12:15 | disposition home or self-care (01) | DRG 291 ==
LOC: ER 08:56 → ICU 10:08 → CSU 03-09 12:13
PROVIDERS: Admitting Provider Internal Medicine; Emergency Provider Family Medicine; PCP Family Medicine; Visit Provider Internal Medicine
DX: I11.0 Hypertensive heart disease with heart failure (principal); I50.33 Acute on chronic diastolic (congestive) heart failure; J96.02 Acute respiratory failure with hypercapnia; J96.01 Acute respiratory failure with hypoxia; E66.2 Morbid (severe) obesity with alveolar hypoventilation; Z68.41 Body mass index [BMI] 40.0-44.9, adult; J44.1 Chronic obstructive pulmonary disease with (acute) exacerbation; L03.90 Cellulitis, unspecified; E87.1 Hypo-osmolality and hyponatremia; F43.10 Post-traumatic stress disorder, unspecified; E11.9 Type 2 diabetes mellitus without complications; F10.20 Alcohol dependence, uncomplicated; L40.9 Psoriasis, unspecified; E78.5 Hyperlipidemia, unspecified; F17.200 Nicotine dependence, unspecified, uncomplicated; Z88.0 Allergy status to penicillin; R07.9 Chest pain, unspecified
CPT/HCPCS: 36415; 36416; 36600; 51702; 71045; 80048; 80051; 80053; 80202; 81001; 82009; 82330; 82550; 82805; 82962; 83036; 83605; 83690; 83735; 83880; 84132; 84443; 84484; 85025; 87040; 87086; 87635; 93005; 93970; 94640; 94660; 94760; 96365; 96367; 96372; 96375; 96376; 99291; J1815; J1940; J1956; J2060; J2930; J3370; J3372; J3411; J7050; J7512; J7626

== ENCOUNTER 2024-12-27 12:04 | Outpatient (CLI) | payer MEDICARE, SELFPAY ==
[2024-12-27 13:29] LABS: HIV 1 & 2 Antigen Non-Reactive (Non-Reactiv)
[2024-12-27 13:36] LABS: Hepatitis A Antibody IgM Non-Reactive (Nonreactive); Hepatitis B Surface Antigen Non-Reactive (Nonreactive)
== END 2024-12-27 12:05 | disposition home or self-care (01) ==
LOC: LAB 12:06
PROVIDERS: PCP Family Medicine; Visit Provider Dermatology
DX: L40.0 Psoriasis vulgaris (principal)
CPT/HCPCS: 36415; 86480; 86705; 86706; 86709; 86803; 87340; 87806

== ENCOUNTER → 2025-01-10 10:35 | Outpatient (BNVA) | payer MEDICARE, SELFPAY | PROVIDERS: PCP Family Medicine; Visit Provider Dermatology | DX: D03.9 Melanoma in situ, unspecified (principal); L40.0 Psoriasis vulgaris; L40.59 Other psoriatic arthropathy; L40.8 Other psoriasis | CPT/HCPCS: 99214 ==

== ENCOUNTER → 2025-02-04 13:00 | Outpatient (BNVA) | payer MEDICARE, SELFPAY | PROVIDERS: PCP Family Medicine; Visit Provider Dermatology | DX: L40.0 Psoriasis vulgaris (principal) | CPT/HCPCS: 99212 ==